=== PATIENT | female | born 1970 | race Asian ===

== ENCOUNTER 2016-04-30 10:12 | Outpatient (CLI) | payer OTHER ==
[~2016-04-30 10:12] MED LIST: AMLO2.5T PO; CLONIDINE0.1 MG PO; HYDR25TA60 PO; LISI20TA11 PO; METF500T PO; SIMV20TA2 PO; WARFARIN5 MG PO
[2016-04-30 10:25] LABS: PLATELET COUNT 304 K/uL (152-353)
[2016-04-30 10:39] LABS: POTASSIUM 4.8 mmol/L (3.6-5.2)
[2016-07-17] MEDS ORDERED: GLIP10TA55 PO (16:18)
[2016-07-17] MEDS ORDERED: LISI20TA11 PO (16:19)
[2016-07-17] MEDS ORDERED: TRAM50TA PO (16:20)
[2016-07-17] MEDS ORDERED: OMEP20CA PO (16:20)
== END 2016-04-30 19:13 | disposition home or self-care (01) ==
LOC: LAB 10:12
PROVIDERS: Internal Medicine
DX: D64.89 Other specified anemias (principal); E11.9 Type 2 diabetes mellitus without complications; I10 Essential (primary) hypertension; Z79.899 Other long term (current) drug therapy; Z51.81 Encounter for therapeutic drug level monitoring
CPT/HCPCS: 80053; 80061; 82607; 82746; 83036; 85027

== ENCOUNTER 2016-05-08 20:04 | Emergency (ER) | payer OTHER ==
[~2016-05-08] VITALS: Ht 160 cm; Wt 97.1 kg
[2016-05-08 22:00] VITALS: BP 189/95; TEMP 98.3
[2016-07-17] MEDS ORDERED: GLIP10TA55 PO (16:18)
[2016-07-17] MEDS ORDERED: LISI20TA11 PO (16:19)
[2016-07-17] MEDS ORDERED: TRAM50TA PO (16:20)
[2016-07-17] MEDS ORDERED: OMEP20CA PO (16:20)
== END 2016-05-08 22:00 | disposition home or self-care (01) ==
LOC: ED 20:04
DX: S00.83XA Contusion of other part of head, initial encounter (principal); W22.8XXA Striking against or struck by other objects, initial encounter; Y92.098 Other place in other non-institutional residence as the place of occurrence of the external cause
CPT/HCPCS: 99283

== ENCOUNTER 2016-06-12 10:10 | Outpatient (CLI) | payer OTHER ==
[2016-07-17] MEDS ORDERED: GLIP10TA55 PO (16:18)
[2016-07-17] MEDS ORDERED: LISI20TA11 PO (16:19)
[2016-07-17] MEDS ORDERED: OMEP20CA PO (16:20)
[2016-07-17] MEDS ORDERED: TRAM50TA PO (16:20)
== END 2016-06-12 18:59 | disposition home or self-care (01) ==
LOC: MAMMO 10:10
DX: Z12.31 Encounter for screening mammogram for malignant neoplasm of breast (principal)
CPT/HCPCS: G0202-TC

== ENCOUNTER 2016-06-30 12:39 | Emergency (ER) | payer OTHER ==
[~2016-06-30] VITALS: Ht 160 cm; Wt 93.4 kg
[2016-06-30 13:42] LABS: PLATELET COUNT 309 K/uL (152-353)
[2016-06-30 13:53] LABS: POTASSIUM 4.3 mmol/L (3.6-5.2)
[2016-06-30 14:48] VITALS: BP 148/82; TEMP 98.4
[2016-07-17] MEDS ORDERED: GLIP10TA55 PO (16:18)
[2016-07-17] MEDS ORDERED: LISI20TA11 PO (16:19)
[2016-07-17] MEDS ORDERED: TRAM50TA PO (16:20)
[2016-07-17] MEDS ORDERED: OMEP20CA PO (16:20)
== END 2016-06-30 14:48 | disposition home or self-care (01) ==
LOC: ED 12:39
PROVIDERS: Family Medicine
DX: K21.9 Gastro-esophageal reflux disease without esophagitis (principal); R10.11 Right upper quadrant pain; S39.011A Strain of muscle, fascia and tendon of abdomen, initial encounter
CPT/HCPCS: 80053; 85027; 96372; 99283; J1885

== ENCOUNTER 2016-08-27 08:02 | Outpatient (CLI) | payer OTHER ==
[~2016-08-27] VITALS: Ht 160 cm; Wt 94.8 kg
[~2016-08-27 08:02] MED LIST changes: +GLIP10TA55 PO; +OMEP20CA PO; +TRAM50TA PO
== END 2016-08-27 11:30 | disposition home or self-care (01) ==
LOC: NM 08:02
DX: R07.89 Other chest pain (principal)
CPT/HCPCS: A9500; J2785

== ENCOUNTER 2016-09-23 11:42 | Outpatient (CLI) | payer OTHER ==
[2016-09-23 12:38] LABS: POTASSIUM 4.9 mmol/L (3.6-5.2)
[2016-09-23 12:40] LABS: PLATELET COUNT 255 K/uL (152-353)
== END 2016-09-23 19:49 | disposition home or self-care (01) ==
LOC: LABW 11:42
PROVIDERS: Specialist
DX: Z01.810 Encounter for preprocedural cardiovascular examination (principal)
CPT/HCPCS: 36415; 80053; 85027

== ENCOUNTER 2016-09-25 12:29 | Observation (INO) | payer OTHER ==
[~2016-09-25] VITALS: Ht 160 cm; Wt 103.6 kg
--- NOTE | 2016-09-25 12:55 | NUR ---
ORIENTED PT TO ROOM AND CONTROLS. [facility] PROVIDED AND TAPE PLACED CENTRAL SUPPLY CLERK LIGHT FOR PT TO FEEL TO CALL FOR NURSE. PT VERBALIZED UNDERSTANDING. 1450- PT TO XRAY AT THIS TIME
[2016-09-25] MEDS ORDERED: JANTOVEN7.5 MG PO (14:48)
[2016-09-25] MEDS ORDERED: DULOXETINE HCL30 MG PO (14:49)
[2016-09-25] MEDS ORDERED: LIPITOR20 MG PO (14:50)
[2016-09-25] MEDS ORDERED: ALAVERT10 M2 PO (14:50)
[2016-09-25] MEDS ORDERED: GLIM2TAB PO (14:50)
[2016-09-25] MEDS ORDERED: GABA300C2 PO (14:51)
[2016-09-25 15:10] VITALS: BP 189/85; TEMP 98.1; Ht 160 cm; Wt 103.6 kg
[2016-09-25 15:11] LABS: PLATELET COUNT 247 K/uL (152-353)
[2016-09-25 15:27] LABS: POTASSIUM 4.9 mmol/L (3.6-5.2)
[2016-09-25 15:31] LABS: PARTIAL THROMBOPLASTIN TIME 28.9 SECONDS (24.5-33.6)
[2016-09-25 16:00] VITALS: BP 189/85; TEMP 98.1
--- NOTE | 2016-09-25 16:00 | NUR ---
BLOOD ADMINISTRATION SHEETS READ AND EXOKAINED TO PT. PT VERBALIZED UNDERSTANDING AND SIGNED BLOOD CONSENT.
[2016-09-25 20:00] VITALS: BP 161/84; TEMP 98.3
[2016-09-26] VITALS: BP 155/89; TEMP 98
[2016-09-26 04:00] VITALS: BP 154/81; TEMP 98.5
[2016-09-26 07:45] VITALS: BP 175/81; TEMP 97.5
[2016-09-26 08:35] LABS: PLATELET COUNT 231 K/uL (152-353)
[2016-09-26 08:37] LABS: POTASSIUM 4.9 mmol/L (3.6-5.2)
--- NOTE | 2016-09-26 10:00 | NUR ---
BP RECHECKED 167/79.
--- NOTE | 2016-09-26 10:15 | NUR ---
CALLED DR MICHELLE OFFICE TO GIVE UPDATE ON HGB. FAXED LABS TO DR MICHELLE OFFICE. INSTRUCTIONS GIVEN TO NURSE TO GIVE TO PT FOR HEART CATH. HEART CATH SCHEDULED FOR 10/03/16 AT 0700. INSTRUCTIONS FOR PT TO RESTART COUMADIN TODAY AND STOP TAKING COUMADIN ON 09/30/16- FRIDAY BEFORE CATH. WILL INSTRUCT PT. DR SANTOYO NOTIFIED AND ORDERED TO FOLLOW SAME ORDERS.
--- NOTE | 2016-09-26 10:51 | NUR ---
INSTRUCTED PT TO BE AT [facility] AT 0700 ON 10/03/16 FOR HEART CATH. INSTRUCTED PT TO TAKE COUMADIN DIRECTED UNTIL Friday09/30/16-FRIDAY BEFORE HEART CATH. INSTRUCTED PT OF NPO STATUS AFTER MIDNIGHT ON 10/02/16. INSTRUCTED PT TO NOT TAKE ANY MEDDS THE MORNING OF HEART CATH. PT INSTRUCTED TO CALL DR MICHELLE OFFICE WITH ANY QUESTIONS OR CONCERN RELATED TO MEDICATIONS OR HEART CATH. PT TO FOLLOW UP WITH DR SANTOYO ON 10/04/16 AT 0930. PT VERBALIZED UNDERSTANDING OF ALL INSTRUCTIONS. FAMILY AT VERBALIZED UNDERSTANDING OF ALL INSTRUCTIONS. FAMILY NOITIFED HOME HEALTH OF MEDICATIONS AND FOLLOW UP APPTS. IV DC'D WITH CANNULA INTACT AND SITE CARE PROVIDED. NAD NOTED. PT LEFT VIA WC AT THIS TIME WITH TECH AND FAMILY.
== END 2016-09-26 11:03 | disposition home or self-care (01) ==
LOC: MED/SURG 12:29
PROVIDERS: ADMIT Family Medicine
PROC: 30233N1 Transfusion of Nonautologous Red Blood Cells into Peripheral Vein, Percutaneous Approach (ICD-10-PCS; principal; 2016-09-25)
DX: D64.89 Other specified anemias (principal); R07.89 Other chest pain; I20.0 Unstable angina; R73.9 Hyperglycemia, unspecified
CPT/HCPCS: 36415; 36430; 80053; 82550; 82948; 83880; 84484; 85027; 85610; 85730; 86850; 86900; 86901; 86922; 93005; 96365; 96366; 99220; G0378; G0379; J1940; P9016

== ENCOUNTER 2016-10-21 14:46 | Outpatient (CLI) | payer OTHER ==
[~2016-10-21 14:46] MED LIST changes: +ALAVERT10 M2 PO; +DULOXETINE HCL30 MG PO; +GABA300C2 PO; +GLIM2TAB PO; +JANTOVEN7.5 MG PO; +LIPITOR20 MG PO
[2016-10-21 15:11] LABS: PLATELET COUNT 242 K/uL (152-353)
[2016-10-21 15:20] LABS: POTASSIUM 5.1 mmol/L (3.6-5.2)
== END 2016-10-21 15:50 | disposition home or self-care (01) ==
LOC: LABW 14:46
PROVIDERS: Nurse Practitioner Adult Health
DX: Z01.810 Encounter for preprocedural cardiovascular examination (principal)
CPT/HCPCS: 36415; 80048; 85027

== ENCOUNTER 2016-11-01 13:56 | Outpatient (CLI) | payer OTHER ==
[2016-11-01 14:18] LABS: POTASSIUM 4.5 mmol/L (3.6-5.2)
== END 2016-11-01 19:10 | disposition home or self-care (01) ==
LOC: LABW 13:56
PROVIDERS: Nurse Practitioner Adult Health
DX: Z79.899 Other long term (current) drug therapy (principal); E11.9 Type 2 diabetes mellitus without complications; Z51.81 Encounter for therapeutic drug level monitoring
CPT/HCPCS: 36415; 80048

== ENCOUNTER 2016-11-04 04:56 | Emergency (ER) | payer OTHER ==
[~2016-11-04] VITALS: Ht 160 cm; Wt 102.5 kg
[2016-11-04 06:28] LABS: PLATELET COUNT 273 K/uL (152-353)
[2016-11-04 06:37] LABS: POTASSIUM 4.1 mmol/L (3.6-5.2)
[2016-11-04 10:37] VITALS: BP 129/76; TEMP 98.9
== END 2016-11-04 10:45 | disposition home or self-care (01) ==
LOC: ED 04:56
PROVIDERS: Specialist
DX: M79.1 Myalgia (principal); R58 Hemorrhage, not elsewhere classified
CPT/HCPCS: 36415; 80053; 85027; 99283

== ENCOUNTER 2016-11-13 15:36 | Outpatient (CLI) | payer OTHER | END 2016-11-13 16:40 | disposition home or self-care (01) | LOC: US 15:36 | DX: M79.605 Pain in left leg (principal) ==

== ENCOUNTER 2016-11-29 15:35 | Observation (INO) | payer OTHER ==
[~2016-11-29] VITALS: Ht 160 cm; Wt 86.0 kg
[2016-11-29 15:57] VITALS: BP 167/80; TEMP 98.4
[2016-11-29 19:24] LABS: PLATELET COUNT 320 K/uL (152-353)
[2016-11-29 19:30] LABS: SODIUM 136 mmol/L (136-145)
[2016-11-29 23:02] LABS: PARTIAL THROMBOPLASTIN TIME 25.3 SECONDS (24.5-33.6)
[2016-11-30] VITALS: BP 197/95; TEMP 97.7
[2016-11-30 00:02] VITALS: BP 197/95; TEMP 97.7
[2016-11-30 01:29] VITALS: BP 196/102; TEMP 97.7; Ht 160 cm; Wt 86.0 kg
[2016-11-30 03:47] LABS: PLATELET COUNT 298 K/uL (152-353)
[2016-11-30 04:00] VITALS: BP 150/100; TEMP 97.8
[2016-11-30 04:21] LABS: POTASSIUM 4.8 mmol/L (3.6-5.2)
[2016-11-30 08:32] VITALS: BP 112/67; TEMP 98.5
[2016-11-30 12:00] VITALS: BP 168/89; TEMP 98.7
--- NOTE | 2016-11-30 12:15 | NUR ---
1145 MESSAGE LEFT WITH [facility]BDI FOR DR SANTOYO TO RETURN CALL REGUARDING ABN EKG. 1150 DR SANTOYO RETURNED CALL. NO NEW ORDERS REC'D AT THIS TIME. PT DENIES ANY CHEST PAIN OR SHORTNESS OF BREATH. WILL CON'T TO MONITOR THE PT
--- NOTE | 2016-11-30 14:32 | NUR ---
IV SITE DC'ED WITH CATHETER TIP INTACT. TELEMETRY REMOVED. DISCHARGE INSTRUCTION GIVEN TO PT AND PT VOICED UNDERSTANDING. PT TO CALL FOR A RIDE HOME.
== END 2016-11-30 15:25 | disposition home or self-care (01) ==
LOC: ED 15:35 → MED/SURG 20:30
PROVIDERS: ADMIT Family Medicine
DX: R07.89 Other chest pain (principal); I10 Essential (primary) hypertension; Z86.73 Personal history of transient ischemic attack (TIA), and cerebral infarction without residual deficits
CPT/HCPCS: 36415; 80053; 82550; 82553; 83735; 84484; 85027; 85610; 85730; 93005; 94760; 96372; 99220; 99283; G0378; J1650

== ENCOUNTER 2017-01-20 11:23 | Outpatient (CLI) | payer OTHER ==
[2017-01-20 11:57] LABS: PLATELET COUNT 256 K/uL (152-353)
[2017-01-20 13:10] LABS: POTASSIUM 4.2 mmol/L (3.6-5.2)
== END 2017-01-20 12:25 | disposition home or self-care (01) ==
LOC: LAB 11:23
PROVIDERS: Internal Medicine
DX: E11.9 Type 2 diabetes mellitus without complications (principal); I10 Essential (primary) hypertension
CPT/HCPCS: 80053; 85027

== ENCOUNTER 2017-03-19 10:36 | Outpatient (CLI) | payer OTHER ==
[2017-03-19 10:59] LABS: PLATELET COUNT 219 K/uL (152-353)
[2017-03-19 11:21] LABS: POTASSIUM 4.3 mmol/L (3.6-5.2)
== END 2017-03-19 19:35 | disposition home or self-care (01) ==
LOC: LAB 10:36
PROVIDERS: Nurse Practitioner Family
DX: E11.9 Type 2 diabetes mellitus without complications (principal); I10 Essential (primary) hypertension
CPT/HCPCS: 80053; 85027

== ENCOUNTER 2017-04-17 10:16 | Outpatient (CLI) | payer OTHER ==
[2017-04-17 11:03] LABS: POTASSIUM 4.5 mmol/L (3.6-5.2)
[2017-04-17 11:10] LABS: PLATELET COUNT 228 K/uL (152-353)
== END 2017-04-17 22:32 | disposition home or self-care (01) ==
LOC: LAB 10:16
PROVIDERS: Nurse Practitioner Family
DX: E11.9 Type 2 diabetes mellitus without complications (principal); I10 Essential (primary) hypertension
CPT/HCPCS: 80053; 85027

== ENCOUNTER 2017-05-07 16:04 | Outpatient (CLI) | payer OTHER ==
[2017-05-07 16:38] LABS: PLATELET COUNT 236 K/uL (152-353)
[2017-05-07 16:41] LABS: POTASSIUM 4.6 mmol/L (3.6-5.2)
== END 2017-05-07 19:59 | disposition home or self-care (01) ==
LOC: LAB 16:04
PROVIDERS: Internal Medicine Nephrology
DX: I12.9 Hypertensive chronic kidney disease with stage 1 through stage 4 chronic kidney disease, or unspecified chronic kidney disease (principal); E11.9 Type 2 diabetes mellitus without complications; N18.3 Chronic kidney disease, stage 3 (moderate)
CPT/HCPCS: 80053; 80061; 82570; 84100; 84155; 85027

== ENCOUNTER 2017-06-09 13:51 | Outpatient (CLI) | payer OTHER ==
[2017-06-09 14:03] LABS: PLATELET COUNT 214 K/uL (152-353)
[2017-06-09 14:18] LABS: POTASSIUM 4.4 mmol/L (3.6-5.2)
== END 2017-06-09 19:39 | disposition home or self-care (01) ==
LOC: LAB 13:51
PROVIDERS: Internal Medicine
DX: I10 Essential (primary) hypertension (principal); Z79.01 Long term (current) use of anticoagulants; Z51.81 Encounter for therapeutic drug level monitoring
CPT/HCPCS: 80053; 85027

== ENCOUNTER 2017-07-07 10:42 | Outpatient (CLI) | payer OTHER ==
[2017-07-07 10:56] LABS: PLATELET COUNT 241 K/uL (152-353)
[2017-07-07 11:21] LABS: POTASSIUM 4.1 mmol/L (3.6-5.2)
== END 2017-07-07 19:24 | disposition home or self-care (01) ==
LOC: LAB 10:42
PROVIDERS: Internal Medicine
DX: E11.65 Type 2 diabetes mellitus with hyperglycemia (principal); I10 Essential (primary) hypertension
CPT/HCPCS: 80053; 85027

== ENCOUNTER 2017-08-04 10:15 | Outpatient (CLI) | payer OTHER ==
[2017-08-04 10:36] LABS: PLATELET COUNT 223 K/uL (152-353)
== END 2017-08-04 20:03 | disposition home or self-care (01) ==
LOC: LAB 10:15
PROVIDERS: Internal Medicine
DX: E11.65 Type 2 diabetes mellitus with hyperglycemia (principal); I10 Essential (primary) hypertension
CPT/HCPCS: 80053; 85027

== ENCOUNTER 2017-09-01 12:19 | Outpatient (CLI) | payer OTHER ==
[2017-09-01 13:11] LABS: PLATELET COUNT 197 K/uL (152-353)
[2017-09-01 13:20] LABS: POTASSIUM 4.4 mmol/L (3.6-5.2)
== END 2017-09-01 21:24 | disposition home or self-care (01) ==
LOC: LAB 12:19
PROVIDERS: Internal Medicine
DX: E11.65 Type 2 diabetes mellitus with hyperglycemia (principal); I10 Essential (primary) hypertension
CPT/HCPCS: 80053; 85027

== ENCOUNTER 2017-09-23 12:48 | Outpatient (CLI) | payer OTHER ==
[2017-09-23 12:59] LABS: PLATELET COUNT 200 K/uL (152-353)
[2017-09-23 13:33] LABS: POTASSIUM 4.4 mmol/L (3.6-5.2)
== END 2017-09-23 22:25 | disposition home or self-care (01) ==
LOC: LAB 12:48
PROVIDERS: Internal Medicine Nephrology
DX: E11.9 Type 2 diabetes mellitus without complications (principal); I10 Essential (primary) hypertension; N28.89 Other specified disorders of kidney and ureter
CPT/HCPCS: 80053; 82306; 82570; 83970; 84100; 84155; 85027

== ENCOUNTER 2017-10-20 02:29 | Emergency (ER) | payer OTHER ==
[~2017-10-20] VITALS: Ht 160 cm; Wt 97.5 kg
[2017-10-20 03:50] VITALS: BP 144/77; TEMP 98.5
== END 2017-10-20 03:50 | disposition home or self-care (01) ==
LOC: ED 02:29
DX: M25.571 Pain in right ankle and joints of right foot (principal)
CPT/HCPCS: 96372; 99283; J1885

== ENCOUNTER 2017-11-03 10:23 | Outpatient (CLI) | payer OTHER ==
[2017-11-03 11:06] LABS: PLATELET COUNT 177 K/uL (152-353)
[2017-11-03 11:36] LABS: POTASSIUM 4.3 mmol/L (3.6-5.2)
== END 2017-11-03 23:03 | disposition home or self-care (01) ==
LOC: LAB 10:23
PROVIDERS: Internal Medicine
DX: I10 Essential (primary) hypertension (principal); E86.0 Dehydration
CPT/HCPCS: 80053; 85027

== ENCOUNTER 2017-11-24 13:03 | Outpatient (CLI) | payer OTHER ==
[2017-11-24 14:01] LABS: PLATELET COUNT 193 K/uL (152-353)
[2017-11-24 14:05] LABS: POTASSIUM 4.4 mmol/L (3.6-5.2)
== END 2017-11-24 20:14 | disposition home or self-care (01) ==
LOC: LAB 13:03
PROVIDERS: Internal Medicine
DX: E11.65 Type 2 diabetes mellitus with hyperglycemia (principal); I10 Essential (primary) hypertension; H54.8 Legal blindness, as defined in USA; Z86.73 Personal history of transient ischemic attack (TIA), and cerebral infarction without residual deficits; Z79.01 Long term (current) use of anticoagulants
CPT/HCPCS: 36415; 80053; 85027

== ENCOUNTER 2017-12-23 12:55 | Outpatient (CLI) | payer OTHER ==
[2017-12-23 13:09] LABS: PLATELET COUNT 202 K/uL (152-353)
[2017-12-23 13:28] LABS: POTASSIUM 4.5 mmol/L (3.6-5.2)
== END 2017-12-23 23:33 | disposition home or self-care (01) ==
LOC: LAB 12:55
PROVIDERS: Internal Medicine
DX: I10 Essential (primary) hypertension (principal); E11.65 Type 2 diabetes mellitus with hyperglycemia
CPT/HCPCS: 80053; 85027

== ENCOUNTER 2018-01-24 06:56 | Outpatient (CLI) | payer OTHER | END 2018-01-24 06:59 | disposition short-term general hospital (02) | LOC: AMB 06:56 | DX: R20.2 Paresthesia of skin (principal) | CPT/HCPCS: A0425; A0427 ==

== ENCOUNTER 2018-01-24 07:02 | Emergency (ER) | payer OTHER ==
[~2018-01-24] VITALS: Ht 160 cm; Wt 97.5 kg
[2018-01-24 07:11] VITALS: TEMP 97.2
[2018-01-24 07:59] LABS: PLATELET COUNT 219 K/uL (152-353)
[2018-01-24 08:08] LABS: PARTIAL THROMBOPLASTIN TIME 25.6 SECONDS (24.5-33.6)
[2018-01-24 09:12] VITALS: BP 195/85
== END 2018-01-24 09:12 | disposition home or self-care (01) ==
LOC: ED 07:02
PROVIDERS: Emergency Medicine
DX: M26.69 Other specified disorders of temporomandibular joint (principal); Z86.73 Personal history of transient ischemic attack (TIA), and cerebral infarction without residual deficits; R00.1 Bradycardia, unspecified
CPT/HCPCS: 80053; 82550; 84484; 85027; 85610; 85730; 93005; 99284

== ENCOUNTER 2018-01-26 13:10 | Outpatient (CLI) | payer OTHER ==
[2018-01-26 13:43] LABS: PLATELET COUNT 212 K/uL (152-353)
[2018-01-26 14:06] LABS: POTASSIUM 4.3 mmol/L (3.6-5.2)
== END 2018-01-26 19:57 | disposition home or self-care (01) ==
LOC: LAB 13:10
PROVIDERS: Internal Medicine
DX: E11.65 Type 2 diabetes mellitus with hyperglycemia (principal); I10 Essential (primary) hypertension; Z86.73 Personal history of transient ischemic attack (TIA), and cerebral infarction without residual deficits
CPT/HCPCS: 80053; 85027

== ENCOUNTER 2018-03-02 10:35 | Outpatient (CLI) | payer OTHER ==
[2018-03-02 11:19] LABS: PLATELET COUNT 164 K/uL (152-353)
[2018-03-02 11:29] LABS: POTASSIUM 4.9 mmol/L (3.6-5.2)
== END 2018-03-02 22:53 | disposition home or self-care (01) ==
LOC: LAB 10:35
PROVIDERS: Internal Medicine Nephrology
DX: E11.65 Type 2 diabetes mellitus with hyperglycemia (principal); I10 Essential (primary) hypertension; E78.00 Pure hypercholesterolemia, unspecified; N28.9 Disorder of kidney and ureter, unspecified
CPT/HCPCS: 80053; 80061; 82570; 84100; 84155; 85027

== ENCOUNTER 2018-04-06 10:30 | Outpatient (CLI) | payer OTHER ==
[2018-04-06 10:51] LABS: PLATELET COUNT 212 K/uL (152-353)
[2018-04-06 11:13] LABS: POTASSIUM 4.6 mmol/L (3.6-5.2)
== END 2018-04-06 19:09 | disposition home or self-care (01) ==
LOC: LAB 10:30
PROVIDERS: Internal Medicine
DX: E11.65 Type 2 diabetes mellitus with hyperglycemia (principal); I10 Essential (primary) hypertension; H54.8 Legal blindness, as defined in USA; Z86.73 Personal history of transient ischemic attack (TIA), and cerebral infarction without residual deficits; Z79.01 Long term (current) use of anticoagulants
CPT/HCPCS: 80053; 85027

== ENCOUNTER 2018-05-18 14:50 | Outpatient (CLI) | payer OTHER ==
[2018-05-18 15:35] LABS: PLATELET COUNT 186 K/uL (152-353)
[2018-05-18 15:45] LABS: POTASSIUM 4.7 mmol/L (3.6-5.2)
== END 2018-05-18 19:21 | disposition home or self-care (01) ==
LOC: LAB 14:50
PROVIDERS: Internal Medicine
DX: E11.65 Type 2 diabetes mellitus with hyperglycemia (principal); I10 Essential (primary) hypertension; Z79.01 Long term (current) use of anticoagulants
CPT/HCPCS: 80053; 85027

== ENCOUNTER 2018-05-22 01:54 | Emergency (ER) | payer OTHER ==
[~2018-05-22] VITALS: Ht 160 cm; Wt 97.5 kg
[2018-05-22 03:00] LABS: PLATELET COUNT 235 K/uL (152-353)
[2018-05-22 03:48] VITALS: BP 133/52; TEMP 98.1
== END 2018-05-22 03:59 | disposition home or self-care (01) ==
LOC: ED 01:54
PROVIDERS: Internal Medicine
DX: R11.2 Nausea with vomiting, unspecified (principal); R10.84 Generalized abdominal pain; K52.89 Other specified noninfective gastroenteritis and colitis
CPT/HCPCS: 36415; 81000; 85027; 87502; 93005; 96374; 96375; 99284; J0360; J2405; J3490

== ENCOUNTER 2018-06-15 10:22 | Outpatient (CLI) | payer OTHER ==
[2018-06-15 11:30] LABS: PLATELET COUNT 192 K/uL (152-353)
[2018-06-15 11:39] LABS: POTASSIUM 4.5 mmol/L (3.6-5.2)
== END 2018-06-15 20:00 | disposition home or self-care (01) ==
LOC: LAB 10:22
PROVIDERS: Internal Medicine
DX: E11.65 Type 2 diabetes mellitus with hyperglycemia (principal); I10 Essential (primary) hypertension; Z79.01 Long term (current) use of anticoagulants
CPT/HCPCS: 80053; 85027

== ENCOUNTER 2018-07-12 13:56 | Emergency (ER) | payer OTHER ==
[~2018-07-12] VITALS: Ht 160 cm; Wt 97.5 kg
[2018-07-12 13:57] VITALS: TEMP 98.4
[2018-07-12 15:41] LABS: PLATELET COUNT 192 K/uL (152-353)
[2018-07-12 15:47] LABS: POTASSIUM 4.4 mmol/L (3.6-5.2)
[2018-07-12 18:24] VITALS: BP 170/89
== END 2018-07-12 18:24 | disposition home or self-care (01) ==
LOC: ED 13:56
PROVIDERS: Family Medicine
DX: M54.5 Low back pain (principal); E11.65 Type 2 diabetes mellitus with hyperglycemia; I10 Essential (primary) hypertension
CPT/HCPCS: 80053; 81000; 81025; 82962; 85027; 99283; J1815; J1885

== ENCOUNTER 2018-07-16 10:18 | Outpatient (CLI) | payer OTHER ==
[2018-07-16 10:29] LABS: POTASSIUM 5.7 mmol/L (3.6-5.2)
[2018-07-16 10:36] LABS: PLATELET COUNT 204 K/uL (152-353)
== END 2018-07-16 20:37 | disposition home or self-care (01) ==
LOC: LAB 10:18
PROVIDERS: Internal Medicine
DX: E11.65 Type 2 diabetes mellitus with hyperglycemia (principal); I10 Essential (primary) hypertension; Z79.01 Long term (current) use of anticoagulants
CPT/HCPCS: 80053; 85027

== ENCOUNTER 2018-08-17 10:15 | Outpatient (CLI) | payer OTHER ==
[2018-08-17 10:31] LABS: PLATELET COUNT 204 K/uL (152-353)
[2018-08-17 10:56] LABS: POTASSIUM 4.5 mmol/L (3.6-5.2)
== END 2018-08-17 19:25 | disposition home or self-care (01) ==
LOC: LAB 10:15
PROVIDERS: Internal Medicine
DX: E11.65 Type 2 diabetes mellitus with hyperglycemia (principal); I10 Essential (primary) hypertension; Z79.01 Long term (current) use of anticoagulants
CPT/HCPCS: 80053; 85027

== ENCOUNTER 2018-09-08 09:34 | Outpatient (CLI) | payer OTHER | END 2018-09-08 19:19 | disposition home or self-care (01) | LOC: MAMMO 09:34 | DX: N64.59 Other signs and symptoms in breast (principal); Z12.31 Encounter for screening mammogram for malignant neoplasm of breast ==

== ENCOUNTER 2018-09-15 11:41 | Outpatient (CLI) | payer OTHER ==
[2018-09-15 12:25] LABS: PLATELET COUNT 188 K/uL (152-353)
[2018-09-15 12:57] LABS: POTASSIUM 4.4 mmol/L (3.6-5.2)
== END 2018-09-15 20:31 | disposition home or self-care (01) ==
LOC: LAB 11:41
PROVIDERS: Internal Medicine
DX: E11.65 Type 2 diabetes mellitus with hyperglycemia (principal); I10 Essential (primary) hypertension; H54.8 Legal blindness, as defined in USA; Z86.73 Personal history of transient ischemic attack (TIA), and cerebral infarction without residual deficits; Z79.01 Long term (current) use of anticoagulants
CPT/HCPCS: 80053; 85027

== ENCOUNTER 2018-09-30 09:49 | Day surgery (SDC) | payer OTHER ==
[2018-09-30 13:13] LABS: PLATELET COUNT 222 K/uL (152-353)
[2018-09-30 13:16] LABS: POTASSIUM 4.5 mmol/L (3.6-5.2)
[2018-09-30 13:23] LABS: PARTIAL THROMBOPLASTIN TIME 24.6 SECONDS (24.5-33.6)
== END 2018-09-30 15:30 | disposition home or self-care (01) ==
LOC: OR 09:49
PROVIDERS: Internal Medicine Gastroenterology
PROC: 0DB68ZZ Excision of Stomach, Via Natural or Artificial Opening Endoscopic (ICD-10-PCS; principal; 2018-09-30)
PROC: 0DB88ZZ Excision of Small Intestine, Via Natural or Artificial Opening Endoscopic (ICD-10-PCS; 2018-09-30)
PROC: 0D738ZZ Dilation of Lower Esophagus, Via Natural or Artificial Opening Endoscopic (ICD-10-PCS; 2018-09-30)
DX: K63.89 Other specified diseases of intestine (principal); K31.84 Gastroparesis; K21.0 Gastro-esophageal reflux disease with esophagitis; K22.2 Esophageal obstruction; K29.50 Unspecified chronic gastritis without bleeding; R10.13 Epigastric pain; R13.10 Dysphagia, unspecified; D50.9 Iron deficiency anemia, unspecified
CPT/HCPCS: 80053; 85027; 85610; 85730; J2001; J2250; J2704

== ENCOUNTER 2018-10-05 11:18 | Outpatient (CLI) | payer OTHER ==
[2018-10-05 11:55] LABS: PLATELET COUNT 219 K/uL (152-353)
[2018-10-05 12:46] LABS: POTASSIUM 4.6 mmol/L (3.6-5.2)
== END 2018-10-05 19:38 | disposition home or self-care (01) ==
LOC: LAB 11:18
PROVIDERS: Internal Medicine Nephrology
DX: I12.9 Hypertensive chronic kidney disease with stage 1 through stage 4 chronic kidney disease, or unspecified chronic kidney disease (principal); N18.3 Chronic kidney disease, stage 3 (moderate); D64.89 Other specified anemias; E11.22 Type 2 diabetes mellitus with diabetic chronic kidney disease; E78.00 Pure hypercholesterolemia, unspecified; N28.89 Other specified disorders of kidney and ureter
CPT/HCPCS: 80053; 82728; 83036; 83540; 83550; 83970; 84100; 84155; 85027

== ENCOUNTER 2018-10-18 13:33 | Outpatient (CLI) | payer OTHER | END 2018-10-18 13:36 | disposition short-term general hospital (02) | LOC: AMB 13:33 | DX: J00 Acute nasopharyngitis [common cold] (principal) | CPT/HCPCS: A0425; A0427 ==

== ENCOUNTER 2018-10-18 13:47 | Emergency (ER) | payer OTHER ==
[~2018-10-18] VITALS: Ht 160 cm; Wt 106.1 kg
[2018-10-18 14:51] LABS: PLATELET COUNT 190 K/uL (152-353)
[2018-10-18 15:05] LABS: POTASSIUM 4.9 mmol/L (3.6-5.2)
[2018-10-18 20:20] VITALS: BP 136/91; TEMP 97.9
== END 2018-10-18 21:46 | disposition home or self-care (01) ==
LOC: ED 13:47
PROVIDERS: Family Medicine
DX: R52 Pain, unspecified (principal); E11.65 Type 2 diabetes mellitus with hyperglycemia
CPT/HCPCS: 80053; 81000; 82962; 84484; 85027; 87502; 96372; 99284; J1815

== ENCOUNTER 2018-11-02 10:50 | Outpatient (CLI) | payer OTHER ==
[2018-11-02] MEDS ORDERED: COZAAR25 MG PO (13:22)
[2018-11-02] MEDS ORDERED: ASPIRIN LOW DOS81 MG PO (13:23)
[2018-11-02] MEDS ORDERED: FERROUS SULF325 MG PO (13:24)
[2018-11-02] MEDS ORDERED: PANTOPRAZOLE 40MG TA PO (13:25)
[2018-11-02] MEDS ORDERED: ROCALTROL0.25 MCG PO (13:47)
[2018-11-02] MEDS ORDERED: DULO60CA2 PO (13:48)
[2018-11-02] MEDS ORDERED: CLOP75TA2 PO (13:49)
[2018-11-02] MEDS ORDERED: FURO20TA67 PO (13:50)
[2018-11-02] MEDS ORDERED: HYDRALAZINE50 MG PO (13:51)
[2018-11-02] MEDS ORDERED: METO-837 PO (13:51)
[2018-11-02] MEDS ORDERED: GRALISE600 MG PO (13:52)
== END 2018-11-02 10:52 | disposition short-term general hospital (02) ==
LOC: AMB 10:50
DX: R73.9 Hyperglycemia, unspecified (principal)
CPT/HCPCS: A0425; A0429

== ENCOUNTER 2018-11-02 10:58 | Emergency (ER) | payer OTHER ==
[~2018-11-02] VITALS: Ht 160 cm; Wt 107.0 kg
[2018-11-02 12:27] LABS: POTASSIUM 4.3 mmol/L (3.6-5.2); SODIUM 128 mmol/L (136-145)
[2018-11-02 12:32] LABS: PLATELET COUNT 182 K/uL (152-353)
[2018-11-02] MEDS ORDERED: COZAAR25 MG PO (13:22)
[2018-11-02] MEDS ORDERED: ASPIRIN LOW DOS81 MG PO (13:23)
[2018-11-02] MEDS ORDERED: FERROUS SULF325 MG PO (13:24)
[2018-11-02] MEDS ORDERED: PANTOPRAZOLE 40MG TA PO (13:25)
[2018-11-02] MEDS ORDERED: ROCALTROL0.25 MCG PO (13:47)
[2018-11-02] MEDS ORDERED: DULO60CA2 PO (13:48)
[2018-11-02] MEDS ORDERED: CLOP75TA2 PO (13:49)
[2018-11-02] MEDS ORDERED: FURO20TA67 PO (13:50)
[2018-11-02] MEDS ORDERED: HYDRALAZINE50 MG PO (13:51)
[2018-11-02] MEDS ORDERED: METO-837 PO (13:51)
[2018-11-02] MEDS ORDERED: GRALISE600 MG PO (13:52)
[2018-11-02 14:40] VITALS: BP 159/68; TEMP 97.9
== END 2018-11-02 14:40 | disposition home or self-care (01) ==
LOC: ED 10:58
PROVIDERS: Student in an Organized Health Care Education/Training Program
DX: E10.65 Type 1 diabetes mellitus with hyperglycemia (principal); Z79.4 Long term (current) use of insulin
CPT/HCPCS: 36415; 80048; 81000; 81025; 82962; 83735; 84484; 85027; 93005; 96360; 96361; 96372; 99284; J1815

== ENCOUNTER 2018-11-09 12:42 | Outpatient (CLI) | payer OTHER ==
[~2018-11-09 12:42] MED LIST changes: +ASPIRIN LOW DOS81 MG PO; +CLOP75TA2 PO; +COZAAR25 MG PO; +DULO60CA2 PO; +FERROUS SULF325 MG PO; +FURO20TA67 PO; +GRALISE600 MG PO; +HYDRALAZINE50 MG PO; +METO-837 PO; +PANTOPRAZOLE 40MG TA PO; +ROCALTROL0.25 MCG PO
[2018-11-09 13:23] LABS: PLATELET COUNT 203 K/uL (152-353)
[2018-11-09 14:10] LABS: POTASSIUM 4.1 mmol/L (3.6-5.2)
== END 2018-11-09 21:41 | disposition home or self-care (01) ==
LOC: LAB 12:42
PROVIDERS: Internal Medicine
DX: I10 Essential (primary) hypertension (principal); E11.65 Type 2 diabetes mellitus with hyperglycemia; H54.8 Legal blindness, as defined in USA; Z86.73 Personal history of transient ischemic attack (TIA), and cerebral infarction without residual deficits; Z79.01 Long term (current) use of anticoagulants
CPT/HCPCS: 80053; 85027

== ENCOUNTER 2018-11-17 10:44 | Outpatient (CLI) | payer OTHER | END 2018-11-17 23:44 | disposition home or self-care (01) | LOC: LAB 10:44 | DX: I63.89 Other cerebral infarction (principal); N18.4 Chronic kidney disease, stage 4 (severe); E78.49 Other hyperlipidemia; E03.8 Other specified hypothyroidism; Z79.01 Long term (current) use of anticoagulants; E66.01 Morbid (severe) obesity due to excess calories; H57.11 Ocular pain, right eye; E11.69 Type 2 diabetes mellitus with other specified complication; E11.65 Type 2 diabetes mellitus with hyperglycemia | CPT/HCPCS: 83036 ==

== ENCOUNTER 2018-12-01 07:55 | Outpatient (CLI) | payer OTHER ==
[~2018-12-01] VITALS: Ht 160 cm; Wt 104.8 kg
== END 2018-12-01 20:55 | disposition home or self-care (01) ==
LOC: NM 07:55
DX: I25.119 Atherosclerotic heart disease of native coronary artery with unspecified angina pectoris (principal)
CPT/HCPCS: A9500; J2785

== ENCOUNTER 2018-12-08 11:19 | Outpatient (CLI) | payer OTHER ==
[2018-12-08 12:06] LABS: POTASSIUM 4.5 mmol/L (3.6-5.2)
[2018-12-08 12:13] LABS: PLATELET COUNT 190 K/uL (152-353)
== END 2018-12-08 23:59 ==
LOC: LAB 11:19
PROVIDERS: Internal Medicine
DX: E11.65 Type 2 diabetes mellitus with hyperglycemia (principal); I10 Essential (primary) hypertension
CPT/HCPCS: 80053; 83036; 85027

== ENCOUNTER 2019-01-11 10:45 | Outpatient (CLI) | payer OTHER ==
[2019-01-11 11:23] LABS: PLATELET COUNT 202 K/uL (152-353)
[2019-01-11 11:40] LABS: POTASSIUM 4.4 mmol/L (3.6-5.2)
== END 2019-01-11 23:20 | disposition home or self-care (01) ==
LOC: LAB 10:45
PROVIDERS: Internal Medicine
DX: E11.65 Type 2 diabetes mellitus with hyperglycemia (principal)
CPT/HCPCS: 80053; 83036; 85027

== ENCOUNTER 2019-02-09 11:34 | Outpatient (CLI) | payer OTHER ==
[2019-02-09 12:00] LABS: PLATELET COUNT 193 K/uL (152-353)
[2019-02-09 12:17] LABS: POTASSIUM 4.2 mmol/L (3.6-5.2)
== END 2019-02-09 19:02 | disposition home or self-care (01) ==
LOC: LAB 11:34
PROVIDERS: Internal Medicine Nephrology
DX: E11.65 Type 2 diabetes mellitus with hyperglycemia (principal); D64.89 Other specified anemias; E78.00 Pure hypercholesterolemia, unspecified; I12.9 Hypertensive chronic kidney disease with stage 1 through stage 4 chronic kidney disease, or unspecified chronic kidney disease; N18.3 Chronic kidney disease, stage 3 (moderate); N28.9 Disorder of kidney and ureter, unspecified; E11.22 Type 2 diabetes mellitus with diabetic chronic kidney disease
CPT/HCPCS: 80053; 83036; 83970; 84100; 85027

== ENCOUNTER 2019-03-22 11:22 | Outpatient (CLI) | payer OTHER ==
[2019-03-22 12:02] LABS: PLATELET COUNT 194 K/uL (152-353)
[2019-03-22 12:36] LABS: POTASSIUM 4.2 mmol/L (3.6-5.2)
== END 2019-03-22 20:52 | disposition home or self-care (01) ==
LOC: LAB 11:22
PROVIDERS: Internal Medicine
DX: E11.65 Type 2 diabetes mellitus with hyperglycemia (principal); I10 Essential (primary) hypertension
CPT/HCPCS: 80053; 83036; 85027

== ENCOUNTER 2019-04-26 11:41 | Outpatient (CLI) | payer OTHER ==
[2019-04-26 12:01] LABS: PLATELET COUNT 178 K/uL (152-353)
[2019-04-26 12:12] LABS: POTASSIUM 4.8 mmol/L (3.6-5.2)
== END 2019-04-26 22:35 | disposition home or self-care (01) ==
LOC: LAB 11:41
PROVIDERS: Internal Medicine
DX: E11.65 Type 2 diabetes mellitus with hyperglycemia (principal); I10 Essential (primary) hypertension
CPT/HCPCS: 80053; 83036; 85027

== ENCOUNTER 2019-05-10 10:46 | Outpatient (CLI) | payer OTHER ==
[2019-05-10 11:03] LABS: PLATELET COUNT 175 K/uL (152-353)
[2019-05-10 11:12] LABS: POTASSIUM 4.3 mmol/L (3.6-5.2)
== END 2019-05-10 20:12 | disposition home or self-care (01) ==
LOC: LABW 10:46
PROVIDERS: Specialist
DX: Z01.810 Encounter for preprocedural cardiovascular examination (principal); R07.2 Precordial pain; R93.1 Abnormal findings on diagnostic imaging of heart and coronary circulation
CPT/HCPCS: 36415; 80053; 85027

== ENCOUNTER 2019-05-15 12:04 | Outpatient (CLI) | payer OTHER | END 2019-05-15 12:06 | disposition short-term general hospital (02) | LOC: AMB 12:04 | DX: M79.631 Pain in right forearm (principal); S50.11XA Contusion of right forearm, initial encounter | CPT/HCPCS: A0425; A0429 ==

== ENCOUNTER 2019-05-15 12:15 | Emergency (ER) | payer OTHER ==
[~2019-05-15] VITALS: Ht 160 cm; Wt 113.4 kg
[2019-05-15 12:22] VITALS: TEMP 99
[2019-05-15 13:10] VITALS: BP 175/84
== END 2019-05-15 13:13 | disposition home or self-care (01) ==
LOC: ED 12:15
DX: S50.11XA Contusion of right forearm, initial encounter (principal); I80.8 Phlebitis and thrombophlebitis of other sites
CPT/HCPCS: 99281; 99282

== ENCOUNTER 2019-05-17 12:30 | Outpatient (CLI) | payer OTHER ==
[2019-05-17 12:59] LABS: PLATELET COUNT 185 K/uL (152-353)
[2019-05-17 13:14] LABS: POTASSIUM 4.4 mmol/L (3.6-5.2)
== END 2019-05-17 19:35 | disposition home or self-care (01) ==
LOC: LAB 12:30
PROVIDERS: Internal Medicine Nephrology
DX: Z00.00 Encounter for general adult medical examination without abnormal findings (principal); E11.65 Type 2 diabetes mellitus with hyperglycemia; E11.22 Type 2 diabetes mellitus with diabetic chronic kidney disease; D64.89 Other specified anemias; E78.00 Pure hypercholesterolemia, unspecified; I12.9 Hypertensive chronic kidney disease with stage 1 through stage 4 chronic kidney disease, or unspecified chronic kidney disease; N18.3 Chronic kidney disease, stage 3 (moderate); N28.89 Other specified disorders of kidney and ureter; H54.3 Unqualified visual loss, both eyes
CPT/HCPCS: 80053; 81000; 82570; 83970; 84100; 84155; 85027; 87088

== ENCOUNTER 2019-06-14 11:45 | Outpatient (CLI) | payer OTHER ==
[2019-06-14 12:15] LABS: PLATELET COUNT 204 K/uL (152-353)
[2019-06-14 12:44] LABS: POTASSIUM 4.6 mmol/L (3.6-5.2)
== END 2019-06-14 19:56 | disposition home or self-care (01) ==
LOC: LAB 11:45
PROVIDERS: Internal Medicine
DX: E11.65 Type 2 diabetes mellitus with hyperglycemia (principal); I10 Essential (primary) hypertension
CPT/HCPCS: 80053; 83036; 85027

== ENCOUNTER 2019-08-16 10:02 | Outpatient (CLI) | payer OTHER ==
[2019-08-16 11:20] LABS: PLATELET COUNT 211 K/uL (152-353)
[2019-08-16 11:32] LABS: POTASSIUM 4.1 mmol/L (3.6-5.2)
== END 2019-08-16 19:37 | disposition home or self-care (01) ==
LOC: LAB 10:02
PROVIDERS: Internal Medicine
DX: E11.65 Type 2 diabetes mellitus with hyperglycemia (principal); I10 Essential (primary) hypertension
CPT/HCPCS: 80053; 83036; 85027

== ENCOUNTER 2019-09-23 13:52 | Outpatient (CLI) | payer OTHER | END 2019-09-23 22:25 | disposition home or self-care (01) | LOC: MAMMO 13:52 | DX: Z12.31 Encounter for screening mammogram for malignant neoplasm of breast (principal) ==

== ENCOUNTER 2019-10-18 11:08 | Outpatient (CLI) | payer OTHER ==
[2019-10-18 11:47] LABS: POTASSIUM 4.7 mmol/L (3.6-5.2)
[2019-10-18 13:07] LABS: PLATELET COUNT 198 K/uL (152-353)
== END 2019-10-18 21:10 | disposition home or self-care (01) ==
LOC: LAB 11:08
PROVIDERS: Internal Medicine
DX: E11.65 Type 2 diabetes mellitus with hyperglycemia (principal); I10 Essential (primary) hypertension
CPT/HCPCS: 80053; 83036; 85027

== ENCOUNTER 2019-11-15 10:07 | Outpatient (CLI) | payer OTHER ==
[2019-11-15 10:22] LABS: PLATELET COUNT 175 K/uL (152-353)
[2019-11-15 10:37] LABS: POTASSIUM 4.2 mmol/L (3.6-5.2)
== END 2019-11-15 23:59 | disposition home or self-care (01) ==
LOC: LAB 10:07
PROVIDERS: Internal Medicine Nephrology
DX: Z01.810 Encounter for preprocedural cardiovascular examination (principal); Z01.811 Encounter for preprocedural respiratory examination; Z01.812 Encounter for preprocedural laboratory examination; D64.9 Anemia, unspecified; H54.3 Unqualified visual loss, both eyes; N18.3 Chronic kidney disease, stage 3 (moderate); E11.22 Type 2 diabetes mellitus with diabetic chronic kidney disease; E11.9 Type 2 diabetes mellitus without complications; I10 Essential (primary) hypertension; E78.00 Pure hypercholesterolemia, unspecified; Z28.21 Immunization not carried out because of patient refusal; N28.9 Disorder of kidney and ureter, unspecified
CPT/HCPCS: 80053; 81000; 82306; 82570; 83036; 83970; 84100; 84155; 85027

== ENCOUNTER 2019-12-20 13:14 | Outpatient (CLI) | payer OTHER ==
[2019-12-20 13:54] LABS: PLATELET COUNT 190 K/uL (152-353)
[2019-12-20 14:03] LABS: POTASSIUM 4.3 mmol/L (3.6-5.2)
== END 2019-12-20 23:03 | disposition home or self-care (01) ==
LOC: LAB 13:14
PROVIDERS: Internal Medicine
DX: E11.65 Type 2 diabetes mellitus with hyperglycemia (principal); I10 Essential (primary) hypertension
CPT/HCPCS: 80053; 83036; 85027

== ENCOUNTER 2020-01-17 10:39 | Outpatient (CLI) | payer OTHER ==
[2020-01-17 11:04] LABS: PLATELET COUNT 222 K/uL (152-353)
[2020-01-17 11:12] LABS: POTASSIUM 4.5 mmol/L (3.6-5.2)
== END 2020-01-17 23:33 | disposition home or self-care (01) ==
LOC: LAB 10:39
PROVIDERS: Internal Medicine
DX: I10 Essential (primary) hypertension (principal); E11.65 Type 2 diabetes mellitus with hyperglycemia
CPT/HCPCS: 80053; 83036; 85027

== ENCOUNTER 2020-01-31 11:02 | Outpatient (CLI) | payer OTHER | END 2020-01-31 19:12 | disposition home or self-care (01) | LOC: RAD 11:02 | DX: M06.4 Inflammatory polyarthropathy (principal); M17.0 Bilateral primary osteoarthritis of knee; M47.816 Spondylosis without myelopathy or radiculopathy, lumbar region | CPT/HCPCS: 36415; 82784; 83883; 84165; 85651; 86140; 86200; 86430 ==

== ENCOUNTER 2020-02-14 10:19 | Outpatient (CLI) | payer OTHER ==
[2020-02-14 11:05] LABS: PLATELET COUNT 201 K/uL (152-353)
[2020-02-14 11:10] LABS: POTASSIUM 4.3 mmol/L (3.6-5.2)
== END 2020-02-14 20:29 | disposition home or self-care (01) ==
LOC: LAB 10:19
PROVIDERS: Internal Medicine
DX: E11.65 Type 2 diabetes mellitus with hyperglycemia (principal); I10 Essential (primary) hypertension; H54.8 Legal blindness, as defined in USA; Z86.73 Personal history of transient ischemic attack (TIA), and cerebral infarction without residual deficits; Z79.01 Long term (current) use of anticoagulants
CPT/HCPCS: 80053; 83036; 85027

== ENCOUNTER 2020-02-25 09:49 | Outpatient (CLI) | payer OTHER | END 2020-02-25 19:08 | disposition home or self-care (01) | LOC: RAD 09:49 | DX: M85.89 Other specified disorders of bone density and structure, multiple sites (principal) ==

== ENCOUNTER 2020-03-03 14:25 | Outpatient (CLI) | payer OTHER | END 2020-03-03 22:25 | disposition home or self-care (01) | LOC: MRI 14:25 | PROVIDERS: ATTEND Nurse Practitioner Family | DX: M25.512 Pain in left shoulder (principal); M54.2 Cervicalgia ==

== ENCOUNTER 2020-03-13 17:11 | Outpatient (CLI) | payer OTHER ==
[2020-03-13 17:53] LABS: PLATELET COUNT 214 K/uL (152-353)
[2020-03-13 18:00] LABS: POTASSIUM 4.4 mmol/L (3.6-5.2)
== END 2020-03-13 19:00 | disposition home or self-care (01) ==
LOC: LAB 17:11
PROVIDERS: ATTEND Internal Medicine Nephrology
DX: D64.89 Other specified anemias (principal); N18.30 Chronic kidney disease, stage 3 unspecified; E78.00 Pure hypercholesterolemia, unspecified; N28.89 Other specified disorders of kidney and ureter; E11.22 Type 2 diabetes mellitus with diabetic chronic kidney disease; H54.3 Unqualified visual loss, both eyes; I12.9 Hypertensive chronic kidney disease with stage 1 through stage 4 chronic kidney disease, or unspecified chronic kidney disease
CPT/HCPCS: 80053; 82306; 83036; 83970; 84100; 85027

== ENCOUNTER 2020-03-15 11:35 | Outpatient (CLI) | payer OTHER | END 2020-03-15 23:50 | disposition home or self-care (01) | LOC: LAB 11:35 | PROVIDERS: ATTEND Internal Medicine Nephrology | DX: D64.89 Other specified anemias (principal); E78.00 Pure hypercholesterolemia, unspecified; N18.30 Chronic kidney disease, stage 3 unspecified; N28.89 Other specified disorders of kidney and ureter; E11.22 Type 2 diabetes mellitus with diabetic chronic kidney disease; H54.3 Unqualified visual loss, both eyes; I12.9 Hypertensive chronic kidney disease with stage 1 through stage 4 chronic kidney disease, or unspecified chronic kidney disease | CPT/HCPCS: 81000; 82570; 84155; 87086; 87088 ==

== ENCOUNTER 2020-04-08 22:08 | Emergency (ER) | payer OTHER ==
[~2020-04-08] VITALS: Ht 160 cm; Wt 116.1 kg
[2020-04-08] MEDS ORDERED: AZIT250T3 PO (23:02)
[2020-04-08] MEDS ORDERED: CLARITIN10 MG PO (23:03)
[2020-04-08] MEDS ORDERED: TIZA4TAB5 PO (23:03)
[2020-04-08] MEDS ORDERED: PROTONIX20 MG PO (23:03)
[2020-04-08 23:30] LABS: PLATELET COUNT 186 K/uL (152-353)
[2020-04-08 23:40] LABS: POTASSIUM 4.5 mmol/L (3.6-5.2); SODIUM 131 mmol/L (136-145)
[2020-04-09 00:35] VITALS: BP 149/81; TEMP 97.7
== END 2020-04-09 00:35 | disposition home or self-care (01) ==
LOC: ED 22:08
PROVIDERS: Family Medicine
DX: N39.0 Urinary tract infection, site not specified (principal); E86.0 Dehydration; Z20.828 Contact with and (suspected) exposure to other viral communicable diseases
CPT/HCPCS: 80053; 81000; 82550; 82553; 83605; 84484; 85027; 85379; 87040; 87086; 87088; 87635; 93005; 96365; 96374; 99284; J0696; U0003

== ENCOUNTER 2020-04-10 10:44 | Outpatient (CLI) | payer OTHER ==
[~2020-04-10 10:44] MED LIST changes: +AZIT250T3 PO; +CLARITIN10 MG PO; +PROTONIX20 MG PO; +TIZA4TAB5 PO
[2020-04-10 11:08] LABS: PLATELET COUNT 175 K/uL (152-353)
[2020-04-10 11:15] LABS: POTASSIUM 4.9 mmol/L (3.6-5.2)
== END 2020-04-10 19:37 | disposition home or self-care (01) ==
LOC: LAB 10:44
PROVIDERS: ATTEND Internal Medicine
DX: E11.65 Type 2 diabetes mellitus with hyperglycemia (principal); I10 Essential (primary) hypertension
CPT/HCPCS: 80053; 83036; 85027

== ENCOUNTER 2020-05-08 11:15 | Outpatient (CLI) | payer OTHER ==
[2020-05-08 11:37] LABS: PLATELET COUNT 216 K/uL (152-353)
[2020-05-08 11:51] LABS: POTASSIUM 4.6 mmol/L (3.6-5.2)
== END 2020-05-08 19:22 | disposition home or self-care (01) ==
LOC: LAB 11:15
PROVIDERS: ATTEND Internal Medicine
DX: E11.65 Type 2 diabetes mellitus with hyperglycemia (principal); Z79.01 Long term (current) use of anticoagulants; I10 Essential (primary) hypertension
CPT/HCPCS: 80053; 83036; 85027

== ENCOUNTER 2020-06-05 10:48 | Outpatient (CLI) | payer OTHER ==
[2020-06-05 11:59] LABS: PLATELET COUNT 221 K/uL (152-353)
[2020-06-05 12:14] LABS: POTASSIUM 4.4 mmol/L (3.6-5.2)
== END 2020-06-05 19:33 | disposition home or self-care (01) ==
LOC: LAB 10:48
PROVIDERS: ATTEND Internal Medicine
DX: E11.65 Type 2 diabetes mellitus with hyperglycemia (principal)
CPT/HCPCS: 80053; 83036; 85027

== ENCOUNTER 2020-06-14 18:03 | Inpatient (IN) | payer OTHER ==
[2020-06-14] VITALS (7 sets, daily range): BP systolic 167–186; BP diastolic 72–89; TEMP 98.5
[~2020-06-14] VITALS: Ht 170.2 cm; Wt 119.0 kg
[2020-06-14 18:38] LABS: PLATELET COUNT 213 K/uL (152-353)
[2020-06-14 18:45] LABS: POTASSIUM 4.4 mmol/L (3.6-5.2); SODIUM 134 mmol/L (136-145)
[2020-06-14 20:00] LABS: PARTIAL THROMBOPLASTIN TIME 25.3 SECONDS (24.5-33.6)
[2020-06-15 01:04] VITALS: BP 198/95; TEMP 97.8; BMI 47.2
--- NOTE | 2020-06-15 03:25 | NUR ---
06/14/20 AT 2117 PATIENT ADMITTED TO ROOM# 1110 VIA STRETCHER FROM THE ER. PATIENT ALERT AND ORIENTED X 4. PATIENT ORIENTED TO ROOM AND CALL SYSTEM AND PATIENT STATES SHE IS LEGALLY BLIND, COTTON BALLS TAPED TO CALL LIGHT AND TV REMOTE SO PATIENT CAN IDENTIFY WHICH BUTTON TO [facility]. PATIENT STATES SHE UNDERSTANDS AND CAN LOCATE WHICH BUTTON TO [facility]. CALL LIGHT WITHIN REACH AND WILL CONTINUE TO MONITOR.
[2020-06-15] MEDS ORDERED: LANTUS100 UNIT/M SC (03:49)
[2020-06-15] MEDS ORDERED: FUROSEMIDE20 MG PO (03:50)
[2020-06-15] MEDS ORDERED: VITAMIN D50000 UNIT PO (03:51)
[2020-06-15] MEDS ORDERED: GABA300C2 PO (03:52)
[2020-06-15] MEDS ORDERED: AZEL137S NAS (03:53)
[2020-06-15] MEDS ORDERED: DICLOFENAC SODIUM1 % TD (03:54)
[2020-06-15 04:00] VITALS: BP 196/94; TEMP 97.6
[2020-06-15 07:45] VITALS: BP 154/84; TEMP 98.3
--- NOTE | 2020-06-15 09:34 | NUR ---
INFORMED DR. GOMEZ OF PT ORDERS FOR NITROPASTE, DR. GOMEZ STATES TO DC NITRO PASTE AT THIS TIME, NO FURTHER ORDERS GIVEN
[2020-06-15 11:43] VITALS: BP 142/81; TEMP 98.6
--- NOTE | 2020-06-15 15:49 | NUR ---
REPORTED TO DR. GOMEZ PT'S BS AT 440, HE STATES TO GIVE 10U REGULAR INSULIN NOW AND RECHECK IT IN AN HOUR THEN TREAT BS NEEDED WITH REGULAR INSULIN, HE ALSO ORDERS TO CHANGE LEVIMIR 25 UNITS BID TO 40 UNITS BID, NO FURTHER ORDERS GIVEN AT THIS TIME
[2020-06-15 15:55] VITALS: BP 136/69; TEMP 98.2
--- NOTE | 2020-06-15 17:08 | NUR ---
PT BS 417 AFTER 10U OF REGULAR INSULIN, DR. GOMEZ MADE AWARE, GIVING 10 MORE UNITS OF NOVOLIN R AT THIS TIME AND WILL RECHECK BS IN AN HOUR
[2020-06-15 20:00] VITALS: BP 130/58; TEMP 97.9
[2020-06-16] VITALS (7 sets, daily range): BP systolic 115–143; BP diastolic 56–75; TEMP 97.6–99.7
[2020-06-16 07:28] LABS: PLATELET COUNT 206 K/uL (152-353)
--- NOTE | 2020-06-16 18:41 | NUR ---
06/16/2020 1840 RESTING ON RT SIDE TALKING ON PHONE NO C/O VOICED.CC
--- NOTE | 2020-06-16 20:47 | NUR ---
PO MEDS WERE GIVEN AND TOLERATED AT THIS TIME, LASIX GIVEN IVP AT THIS TIME, AND APPROPRIATE INSULINS GIVEN AT THIS TIME. PT IS CURRENTLY ON THE PHONE DURING MED ADMINSTRATION. REINFORCED TEACHING ON PARHAM STERILITY.
[2020-06-17] VITALS (7 sets, daily range): BP systolic 112–157; BP diastolic 61–81; TEMP 97.8–98.7; Ht 170.2 cm; Wt 119.0 kg
--- NOTE | 2020-06-17 01:45 | NUR ---
PT IS RESTING QUIETLY WITH SIDE RAILS UP TIMES TWO WITH BED IN LOWEST POSITION. PT SEEMS TO BE IN NO DISTRESS
--- NOTE | 2020-06-17 04:39 | NUR ---
2100: GAVE PATIENTS SCHEDULED LONG ACTING INSULIN, WELL COVINED HER WITH SLIDING SCALE REGULAR INSULIN, 6 UNITS. 0000: PATIENT REASSESED AND SHOWS NO SIGNS OF HYPOGLYCEMIA. PATIENT DENIES PAIN AND IS RESTING QUIETLY
--- NOTE | 2020-06-17 18:01 | NUR ---
0920 BLADDER TRAINING STARTED. 10AM PT STATED SHE NEEDED TO URINATE. PARHAM UNCLAMPED PT PUT OUT 100 ML OF CLEAR YELLOW URINE. 2PM PT CALLED STATED SHE NEEDED TO URINATE. PARHAM UNCLAMPED 200 ML CLEAR YELLOW URINE PUT OUT 1506 PT CALLED NURSE'S STATION STATED SHE NEEDED TO VOID 200 ML CLEAR YELLOW URINE OUT PUT. 1530 10ML FLUID ASPIRATED FROM PARHAM BULB PARHAM CATH WAS REMOVED WITH TIP INTACT. 1740 PT WAS ABLE VOID WITH NO COMPLICATIONS
--- NOTE | 2020-06-18 03:53 | NUR ---
PT HAS BEEN SLEEPING IN CHAIR MOST OF NIGHT. NO COMPLAINTS VOICED. INSTRUCTED PT ON FLUID RESTRICTION. PT VERBALIZED UNDERSTANDING BUT KEEPS ASKING FOR SOMETHING TO DRINK. NEEDS REINFORCING
[2020-06-18 04:05] VITALS: BP 155/73; TEMP 98.3
[2020-06-18 08:00] VITALS: BP 155/67; TEMP 98.2
[2020-06-18 08:40] LABS: PLATELET COUNT 187 K/uL (152-353)
[2020-06-18 08:44] LABS: POTASSIUM 4.7 mmol/L (3.6-5.2)
[2020-06-18 12:00] VITALS: BP 165/61; TEMP 98.1
[2020-06-18 16:00] VITALS: BP 128/75; TEMP 98.1
--- NOTE | 2020-06-18 18:39 | NUR ---
PT STATES HER CHEST IS ABOUT TO FALL OFF STATES IT IS ITCHING. MD NOTIFIED. NEW ORDERS GIVEN TO D/C TELE
[2020-06-18 20:00] VITALS: BP 166/79; TEMP 98.3
[2020-06-19] VITALS: BP 145/76; TEMP 98.6
[2020-06-19 04:09] VITALS: BP 122/61; TEMP 98.5
[2020-06-19 05:01] LABS: POTASSIUM 4.7 mmol/L (3.6-5.2)
[2020-06-19 05:29] LABS: PLATELET COUNT 217 K/uL (152-353)
--- NOTE | 2020-06-19 07:30 | NUR ---
ENTERED PT'S ROOM, PT IS SITTING UPRIGHT IN THE CHAIR WITH THE LIGHTS OFF AND ASLEEP. I WOKE THE PT TO BEGIN ASSESSMENT. PT STATES THAT SHE IS IN NO PAIN THIS AM AND IS A&OX4. HEART SOUNDS ARE REGULAR WITH A NORMAL SINUS RHYTHM. LUNGS SOUND CLEAR IN ALL 5 LOBES. SOME EDEMA IS SEEN IN THE LOWER LIMBS BILATERALLY BUT NOT PITTING. GASTIC SOUNDS ARE HYPOACTIVE. PERIPHERAL PULSES ARE WEAK AND DIFFICULT TO PALPATE. NAD IS NOTED AT THIS TIME. WILL CONTINUE TO MONITOR.
[2020-06-19 08:00] VITALS: BP 156/77; TEMP 98.2
[2020-06-19 12:00] VITALS: BP 120/48; TEMP 97.9
--- NOTE | 2020-06-19 14:00 | NUR ---
EDUCATED PT VERBALLY ON DISCHARGE INSTRUCTIONS. PT VERBALIZED UNDERSTANDING OF DISCHARGE INSTRUCTIONS. PT IS CONTACTING A FRIEND TO COME ESCORT HER HOME. IV WAS REMOVED BY THIS COLLAR POINTER WITH CATHETER STILL INTACT.
--- NOTE | 2020-06-19 14:25 | NUR ---
PT WAS ESCORTED OUT OF THE HOSPITAL VIA WHEELCHAIR. HOME MEDICATIONS AND DISCHARGE INSTRUCTIONS WERE GIVEN TO PT TO [facility]. PT WAS ASSISTED INTO FRIEND'S VEHICLE. NAD WAS NOTED DURING THE DISCHARGE FROM HOSPITAL.
== END 2020-06-19 18:40 | disposition home or self-care (01) | DRG 175 ==
LOC: ED 18:03 → MED/SURG 19:50
PROVIDERS: Emergency Medicine; ADMIT Internal Medicine Endocrinology, Diabetes & Metabolism; ATTEND Internal Medicine Endocrinology, Diabetes & Metabolism
DX: I26.99 Other pulmonary embolism without acute cor pulmonale (principal); J96.01 Acute respiratory failure with hypoxia; Z68.42 Body mass index [BMI] 45.0-49.9, adult; G40.802 Other epilepsy, not intractable, without status epilepticus; E11.9 Type 2 diabetes mellitus without complications; E11.65 Type 2 diabetes mellitus with hyperglycemia; Z86.73 Personal history of transient ischemic attack (TIA), and cerebral infarction without residual deficits; E78.49 Other hyperlipidemia; F32.89 Other specified depressive episodes; E66.01 Morbid (severe) obesity due to excess calories; Z71.3 Dietary counseling and surveillance; K21.9 Gastro-esophageal reflux disease without esophagitis; I11.0 Hypertensive heart disease with heart failure; I50.9 Heart failure, unspecified
CPT/HCPCS: 36415; 36416; 36600; 80048; 80053; 80061; 81000; 82550; 82805; 83605; 83735; 83880; 84484; 85027; 85379; 85610; 85730; 87040; 87502; 87635; 93005; 94664; 94760; 96374; 96375; 99284; A9540; A9567; J1650; J1815; J1940; J2930; U0003

== ENCOUNTER 2020-06-20 11:53 | Outpatient (CLI) | payer OTHER ==
[~2020-06-20 11:53] MED LIST changes: +AZEL137S NAS; +DICLOFENAC SODIUM1 % TD; +FUROSEMIDE20 MG PO; +LANTUS100 UNIT/M SC; +VITAMIN D50000 UNIT PO
[2020-06-20 14:35] LABS: POTASSIUM 4.7 mmol/L (3.6-5.2)
[2020-06-20 15:03] LABS: PLATELET COUNT 204 K/uL (152-353)
== END 2020-06-20 20:14 | disposition home or self-care (01) ==
LOC: LAB 11:53
PROVIDERS: ATTEND Internal Medicine Nephrology
DX: D64.89 Other specified anemias (principal); N18.30 Chronic kidney disease, stage 3 unspecified; E11.22 Type 2 diabetes mellitus with diabetic chronic kidney disease; E78.00 Pure hypercholesterolemia, unspecified; N28.89 Other specified disorders of kidney and ureter; Z95.9 Presence of cardiac and vascular implant and graft, unspecified; I12.9 Hypertensive chronic kidney disease with stage 1 through stage 4 chronic kidney disease, or unspecified chronic kidney disease
CPT/HCPCS: 80053; 81000; 82306; 82570; 83970; 84100; 84155; 85027

== ENCOUNTER 2020-07-03 12:42 | Outpatient (CLI) | payer OTHER ==
[2020-07-03 13:06] LABS: PLATELET COUNT 213 K/uL (152-353)
[2020-07-03 13:16] LABS: POTASSIUM 4.4 mmol/L (3.6-5.2)
== END 2020-07-03 22:15 | disposition home or self-care (01) ==
LOC: LAB 12:42
PROVIDERS: ATTEND Internal Medicine
DX: E11.65 Type 2 diabetes mellitus with hyperglycemia (principal); Z79.01 Long term (current) use of anticoagulants; I50.9 Heart failure, unspecified; Z86.711 Personal history of pulmonary embolism
CPT/HCPCS: 80053; 85027

== ENCOUNTER 2020-07-17 10:08 | Outpatient (CLI) | payer OTHER ==
[2020-07-17 10:41] LABS: PLATELET COUNT 189 K/uL (152-353)
[2020-07-17 11:01] LABS: POTASSIUM 4.6 mmol/L (3.6-5.2)
== END 2020-07-17 21:36 | disposition home or self-care (01) ==
LOC: LAB 10:08
PROVIDERS: ATTEND Nurse Practitioner Family
DX: I26.99 Other pulmonary embolism without acute cor pulmonale (principal); E11.65 Type 2 diabetes mellitus with hyperglycemia; I50.9 Heart failure, unspecified
CPT/HCPCS: 80053; 85027

== ENCOUNTER 2020-07-31 09:40 | Outpatient (CLI) | payer OTHER ==
[2020-07-31 10:12] LABS: PLATELET COUNT 204 K/uL (152-353)
[2020-07-31 10:55] LABS: POTASSIUM 4.5 mmol/L (3.6-5.2)
== END 2020-07-31 19:11 | disposition home or self-care (01) ==
LOC: LAB 09:40 → EDSTATUS 09:49 → LAB 19:11
PROVIDERS: ATTEND Internal Medicine
DX: E11.65 Type 2 diabetes mellitus with hyperglycemia (principal); I10 Essential (primary) hypertension; Z86.711 Personal history of pulmonary embolism
CPT/HCPCS: 80053; 85027

== ENCOUNTER 2020-08-14 10:15 | Outpatient (CLI) | payer OTHER ==
[2020-08-14 10:32] LABS: PLATELET COUNT 243 K/uL (152-353)
[2020-08-14 10:50] LABS: POTASSIUM 4.4 mmol/L (3.6-5.2)
== END 2020-08-14 19:31 | disposition home or self-care (01) ==
LOC: LAB 10:15
PROVIDERS: ATTEND Nurse Practitioner Family
DX: I26.99 Other pulmonary embolism without acute cor pulmonale (principal); E11.65 Type 2 diabetes mellitus with hyperglycemia; I50.9 Heart failure, unspecified
CPT/HCPCS: 80053; 85027

== ENCOUNTER 2020-08-28 11:29 | Outpatient (CLI) | payer OTHER ==
[2020-08-28 12:22] LABS: POTASSIUM 4.3 mmol/L (3.6-5.2)
[2020-08-28 12:53] LABS: PLATELET COUNT 215 K/uL (152-353)
== END 2020-08-28 23:40 | disposition home or self-care (01) ==
LOC: LAB 11:29
PROVIDERS: ATTEND Nurse Practitioner Family
DX: E11.9 Type 2 diabetes mellitus without complications (principal); I50.9 Heart failure, unspecified; Z86.711 Personal history of pulmonary embolism
CPT/HCPCS: 80053; 83036; 85027

== ENCOUNTER 2020-09-11 10:29 | Outpatient (CLI) | payer OTHER ==
[2020-09-11 10:50] LABS: PLATELET COUNT 237 K/uL (152-353)
[2020-09-11 11:14] LABS: POTASSIUM 4.8 mmol/L (3.6-5.2)
== END 2020-09-11 20:58 | disposition home or self-care (01) ==
LOC: LAB 10:29
PROVIDERS: ATTEND Nurse Practitioner Family
DX: E11.65 Type 2 diabetes mellitus with hyperglycemia (principal); I10 Essential (primary) hypertension; Z86.711 Personal history of pulmonary embolism; I50.9 Heart failure, unspecified
CPT/HCPCS: 80053; 85027

== ENCOUNTER 2020-09-25 10:44 | Outpatient (CLI) | payer OTHER ==
[2020-09-25 11:04] LABS: PLATELET COUNT 181 K/uL (152-353)
[2020-09-25 11:19] LABS: POTASSIUM 4.7 mmol/L (3.6-5.2)
== END 2020-09-25 21:47 | disposition home or self-care (01) ==
LOC: LAB 10:44
PROVIDERS: ATTEND Nurse Practitioner Family
DX: E11.65 Type 2 diabetes mellitus with hyperglycemia (principal); Z86.711 Personal history of pulmonary embolism; I50.9 Heart failure, unspecified
CPT/HCPCS: 80053; 85027

== ENCOUNTER 2020-10-16 12:57 | Outpatient (CLI) | payer OTHER ==
[2020-10-24 13:12] LABS: POTASSIUM 4.7 mmol/L (3.6-5.2)
[2020-10-24 13:16] LABS: PLATELET COUNT 240 K/uL (152-353)
== END 2020-10-16 17:00 | disposition home or self-care (01) ==
LOC: LAB 12:57
PROVIDERS: ATTEND Internal Medicine
DX: E11.9 Type 2 diabetes mellitus without complications (principal); I50.9 Heart failure, unspecified; Z86.711 Personal history of pulmonary embolism
CPT/HCPCS: 80053; 85027

== ENCOUNTER 2020-10-30 10:55 | Outpatient (CLI) | payer OTHER ==
[2020-10-30 11:34] LABS: PLATELET COUNT 188 K/uL (152-353)
[2020-10-30 11:43] LABS: POTASSIUM 4.4 mmol/L (3.6-5.2)
== END 2020-10-30 21:25 | disposition home or self-care (01) ==
LOC: LAB 10:55
PROVIDERS: ATTEND Internal Medicine Nephrology
DX: D64.89 Other specified anemias (principal); E78.00 Pure hypercholesterolemia, unspecified; N18.30 Chronic kidney disease, stage 3 unspecified; N28.89 Other specified disorders of kidney and ureter; E11.22 Type 2 diabetes mellitus with diabetic chronic kidney disease; H54.3 Unqualified visual loss, both eyes; I26.99 Other pulmonary embolism without acute cor pulmonale; Z87.39 Personal history of other diseases of the musculoskeletal system and connective tissue; Z91.11 Patient's noncompliance with dietary regimen; Z91.14 Patient's other noncompliance with medication regimen; Z95.9 Presence of cardiac and vascular implant and graft, unspecified; Z28.21 Immunization not carried out because of patient refusal; I12.9 Hypertensive chronic kidney disease with stage 1 through stage 4 chronic kidney disease, or unspecified chronic kidney disease
CPT/HCPCS: 80053; 82306; 83970; 84100; 85027

== ENCOUNTER 2020-10-31 10:16 | Outpatient (CLI) | payer OTHER | END 2020-10-31 21:55 | disposition home or self-care (01) | LOC: LAB 10:16 | PROVIDERS: ATTEND Internal Medicine Nephrology | DX: D64.89 Other specified anemias (principal); E78.00 Pure hypercholesterolemia, unspecified; N18.30 Chronic kidney disease, stage 3 unspecified; N28.89 Other specified disorders of kidney and ureter; E11.22 Type 2 diabetes mellitus with diabetic chronic kidney disease; H54.3 Unqualified visual loss, both eyes; I26.99 Other pulmonary embolism without acute cor pulmonale; Z87.39 Personal history of other diseases of the musculoskeletal system and connective tissue; Z91.11 Patient's noncompliance with dietary regimen; Z91.14 Patient's other noncompliance with medication regimen; Z95.9 Presence of cardiac and vascular implant and graft, unspecified; Z28.21 Immunization not carried out because of patient refusal; I12.9 Hypertensive chronic kidney disease with stage 1 through stage 4 chronic kidney disease, or unspecified chronic kidney disease | CPT/HCPCS: 81000; 82570; 84155 ==

== ENCOUNTER 2020-11-13 16:02 | Emergency (ER) | payer OTHER ==
[~2020-11-13] VITALS: Ht 170.2 cm; Wt 118.8 kg
[2020-11-13 16:54] LABS: PLATELET COUNT 214 K/uL (152-353)
[2020-11-13 17:03] LABS: POTASSIUM 4.5 mmol/L (3.6-5.2)
[2020-11-13 21:15] VITALS: BP 169/70; TEMP 97.6
== END 2020-11-13 21:11 | disposition home or self-care (01) ==
LOC: ED 16:02
PROVIDERS: Emergency Medicine Emergency Medical Services
DX: R10.84 Generalized abdominal pain (principal); N39.0 Urinary tract infection, site not specified
CPT/HCPCS: 80053; 81000; 85027; 87040; 87077; 87086; 87088; 87186; 96360; 96365; 96375; 99284; J0360; J0696; J1815; J2270; J2405

== ENCOUNTER 2020-11-15 13:15 | Outpatient (CLI) | payer OTHER ==
[~2020-11-15] VITALS: Ht 160 cm; Wt 117.9 kg
== END 2020-11-15 23:39 | disposition home or self-care (01) ==
LOC: DIABINF 13:15
PROVIDERS: ATTEND Internal Medicine Endocrinology, Diabetes & Metabolism
DX: E11.65 Type 2 diabetes mellitus with hyperglycemia (principal); N18.30 Chronic kidney disease, stage 3 unspecified; Z86.73 Personal history of transient ischemic attack (TIA), and cerebral infarction without residual deficits; I26.99 Other pulmonary embolism without acute cor pulmonale; Z79.01 Long term (current) use of anticoagulants; H54.8 Legal blindness, as defined in USA; I10 Essential (primary) hypertension; E78.2 Mixed hyperlipidemia; K21.9 Gastro-esophageal reflux disease without esophagitis; R56.9 Unspecified convulsions
CPT/HCPCS: 82948; 96365; 96366; 96521; J1815; J1817

== ENCOUNTER 2020-11-16 13:06 | Outpatient (CLI) | payer OTHER ==
[~2020-11-16] VITALS: Ht 160 cm; Wt 117.9 kg
== END 2020-11-16 22:08 | disposition home or self-care (01) ==
LOC: DIABINF 13:06
PROVIDERS: ATTEND Internal Medicine Endocrinology, Diabetes & Metabolism
DX: E11.65 Type 2 diabetes mellitus with hyperglycemia (principal); N18.9 Chronic kidney disease, unspecified; Z86.73 Personal history of transient ischemic attack (TIA), and cerebral infarction without residual deficits; I26.99 Other pulmonary embolism without acute cor pulmonale; Z79.01 Long term (current) use of anticoagulants; H54.8 Legal blindness, as defined in USA; I10 Essential (primary) hypertension; E78.2 Mixed hyperlipidemia; K21.9 Gastro-esophageal reflux disease without esophagitis; R56.9 Unspecified convulsions
CPT/HCPCS: 82948; 96365; 96366; 96521; J1815; J1817

== ENCOUNTER 2020-11-22 08:14 | Outpatient (CLI) | payer OTHER ==
[~2020-11-22] VITALS: Ht 160 cm; Wt 117.9 kg
== END 2020-11-22 12:32 | disposition home or self-care (01) ==
LOC: DIABINF 08:14
PROVIDERS: ATTEND Internal Medicine Endocrinology, Diabetes & Metabolism
DX: E11.65 Type 2 diabetes mellitus with hyperglycemia (principal); N18.9 Chronic kidney disease, unspecified; Z86.73 Personal history of transient ischemic attack (TIA), and cerebral infarction without residual deficits; I26.99 Other pulmonary embolism without acute cor pulmonale; Z79.01 Long term (current) use of anticoagulants; H54.8 Legal blindness, as defined in USA; I10 Essential (primary) hypertension; E78.2 Mixed hyperlipidemia; K21.9 Gastro-esophageal reflux disease without esophagitis; R56.9 Unspecified convulsions
CPT/HCPCS: 82948; 96365; 96366; 96521; J1815; J1817

== ENCOUNTER 2020-11-23 11:09 | Outpatient (CLI) | payer OTHER | END 2020-11-23 20:34 | disposition home or self-care (01) | LOC: LAB 11:09 | PROVIDERS: ATTEND Nurse Practitioner Family | DX: N18.4 Chronic kidney disease, stage 4 (severe) (principal); R35.0 Frequency of micturition; R39.15 Urgency of urination | CPT/HCPCS: 81000 ==

== ENCOUNTER 2020-11-23 13:02 | Outpatient (CLI) | payer OTHER ==
[~2020-11-23] VITALS: Ht 160 cm; Wt 117.9 kg
== END 2020-11-23 20:35 | disposition home or self-care (01) ==
LOC: DIABINF 13:02
PROVIDERS: ATTEND Internal Medicine Endocrinology, Diabetes & Metabolism
DX: E11.65 Type 2 diabetes mellitus with hyperglycemia (principal); N18.9 Chronic kidney disease, unspecified; Z86.73 Personal history of transient ischemic attack (TIA), and cerebral infarction without residual deficits; I26.99 Other pulmonary embolism without acute cor pulmonale; Z79.01 Long term (current) use of anticoagulants; H54.8 Legal blindness, as defined in USA; I10 Essential (primary) hypertension; E78.2 Mixed hyperlipidemia; K21.9 Gastro-esophageal reflux disease without esophagitis; R56.9 Unspecified convulsions
CPT/HCPCS: 82948; 96365; 96366; 96521; J1815; J1817

== ENCOUNTER 2020-11-28 11:17 | Outpatient (CLI) | payer OTHER ==
[2020-11-28 11:55] LABS: PLATELET COUNT 200 K/uL (152-353)
[2020-11-28 12:10] LABS: POTASSIUM 4.4 mmol/L (3.6-5.2)
== END 2020-11-28 19:24 | disposition home or self-care (01) ==
LOC: LAB 11:17
PROVIDERS: ATTEND Internal Medicine
DX: E11.65 Type 2 diabetes mellitus with hyperglycemia (principal); I10 Essential (primary) hypertension
CPT/HCPCS: 80053; 83036; 85027

== ENCOUNTER 2020-11-29 13:26 | Outpatient (CLI) | payer OTHER ==
[~2020-11-29] VITALS: Ht 160 cm; Wt 117.9 kg
== END 2020-11-29 19:03 | disposition home or self-care (01) ==
LOC: DIABINF 13:26
PROVIDERS: ATTEND Internal Medicine Endocrinology, Diabetes & Metabolism
DX: E11.65 Type 2 diabetes mellitus with hyperglycemia (principal); N18.9 Chronic kidney disease, unspecified; Z86.73 Personal history of transient ischemic attack (TIA), and cerebral infarction without residual deficits; I26.99 Other pulmonary embolism without acute cor pulmonale; Z79.01 Long term (current) use of anticoagulants; H54.8 Legal blindness, as defined in USA; I10 Essential (primary) hypertension; E78.2 Mixed hyperlipidemia; K21.9 Gastro-esophageal reflux disease without esophagitis; R56.9 Unspecified convulsions
CPT/HCPCS: 82948; 96365; 96366; 96521; J1815; J1817

== ENCOUNTER 2020-11-30 12:32 | Outpatient (CLI) | payer OTHER ==
[~2020-11-30] VITALS: Ht 160 cm; Wt 117.9 kg
== END 2020-11-30 22:39 | disposition home or self-care (01) ==
LOC: DIABINF 12:32
PROVIDERS: ATTEND Internal Medicine Endocrinology, Diabetes & Metabolism
DX: E11.65 Type 2 diabetes mellitus with hyperglycemia (principal); N18.9 Chronic kidney disease, unspecified; Z86.73 Personal history of transient ischemic attack (TIA), and cerebral infarction without residual deficits; I26.99 Other pulmonary embolism without acute cor pulmonale; Z79.01 Long term (current) use of anticoagulants; H54.8 Legal blindness, as defined in USA; I10 Essential (primary) hypertension; E78.2 Mixed hyperlipidemia; K21.9 Gastro-esophageal reflux disease without esophagitis; R56.9 Unspecified convulsions
CPT/HCPCS: 82948; 96365; 96366; 96521; J1815; J1817

== ENCOUNTER 2020-12-06 13:14 | Outpatient (CLI) | payer OTHER ==
[~2020-12-06] VITALS: Ht 160 cm; Wt 117.9 kg
== END 2020-12-06 21:15 | disposition home or self-care (01) ==
LOC: DIABINF 13:14
PROVIDERS: ATTEND Internal Medicine Endocrinology, Diabetes & Metabolism
DX: E11.65 Type 2 diabetes mellitus with hyperglycemia (principal); N18.9 Chronic kidney disease, unspecified; Z86.73 Personal history of transient ischemic attack (TIA), and cerebral infarction without residual deficits; I26.99 Other pulmonary embolism without acute cor pulmonale; Z79.01 Long term (current) use of anticoagulants; H54.8 Legal blindness, as defined in USA; I10 Essential (primary) hypertension; E78.2 Mixed hyperlipidemia; K21.9 Gastro-esophageal reflux disease without esophagitis; R56.9 Unspecified convulsions
CPT/HCPCS: 82948; 96365; 96366; 96521; J1815; J1817

== ENCOUNTER 2020-12-07 12:45 | Outpatient (CLI) | payer OTHER ==
[~2020-12-07] VITALS: Ht 160 cm; Wt 117.9 kg
== END 2020-12-07 19:39 | disposition home or self-care (01) ==
LOC: DIABINF 12:45
PROVIDERS: ATTEND Internal Medicine Endocrinology, Diabetes & Metabolism
DX: E11.65 Type 2 diabetes mellitus with hyperglycemia (principal); N18.9 Chronic kidney disease, unspecified; Z86.73 Personal history of transient ischemic attack (TIA), and cerebral infarction without residual deficits; I26.99 Other pulmonary embolism without acute cor pulmonale; Z79.01 Long term (current) use of anticoagulants; H54.8 Legal blindness, as defined in USA; I10 Essential (primary) hypertension; E78.2 Mixed hyperlipidemia; K21.9 Gastro-esophageal reflux disease without esophagitis; R56.9 Unspecified convulsions
CPT/HCPCS: 82948; 96365; 96366; 96521; J1815; J1817

== ENCOUNTER 2020-12-14 13:22 | Outpatient (CLI) | payer OTHER ==
[~2020-12-14] VITALS: Ht 160 cm; Wt 117.9 kg
== END 2020-12-14 20:19 | disposition home or self-care (01) ==
LOC: DIABINF 13:22
PROVIDERS: ATTEND Internal Medicine Endocrinology, Diabetes & Metabolism
DX: E11.65 Type 2 diabetes mellitus with hyperglycemia (principal); N18.9 Chronic kidney disease, unspecified; Z86.73 Personal history of transient ischemic attack (TIA), and cerebral infarction without residual deficits; I26.99 Other pulmonary embolism without acute cor pulmonale; Z79.01 Long term (current) use of anticoagulants; H54.8 Legal blindness, as defined in USA; I10 Essential (primary) hypertension; E78.2 Mixed hyperlipidemia; K21.9 Gastro-esophageal reflux disease without esophagitis; R56.9 Unspecified convulsions
CPT/HCPCS: 82948; 96365; 96366; 96521; J1815; J1817

== ENCOUNTER 2020-12-21 14:23 | Outpatient (CLI) | payer OTHER ==
[~2020-12-21] VITALS: Ht 160 cm; Wt 117.9 kg
== END 2020-12-21 22:18 | disposition home or self-care (01) ==
LOC: DIABINF 14:23
PROVIDERS: ATTEND Internal Medicine Endocrinology, Diabetes & Metabolism
DX: E11.65 Type 2 diabetes mellitus with hyperglycemia (principal); N18.9 Chronic kidney disease, unspecified; Z86.73 Personal history of transient ischemic attack (TIA), and cerebral infarction without residual deficits; I26.99 Other pulmonary embolism without acute cor pulmonale; Z79.01 Long term (current) use of anticoagulants; H54.8 Legal blindness, as defined in USA; I10 Essential (primary) hypertension; E78.2 Mixed hyperlipidemia; K21.9 Gastro-esophageal reflux disease without esophagitis; R56.9 Unspecified convulsions
CPT/HCPCS: 82948; 96365; 96366; 96521; J1815; J1817

== ENCOUNTER 2020-12-26 10:12 | Outpatient (CLI) | payer OTHER ==
[2020-12-26 10:42] LABS: PLATELET COUNT 259 K/uL (152-353)
[2020-12-26 11:12] LABS: POTASSIUM 4.6 mmol/L (3.6-5.2)
== END 2020-12-26 20:34 | disposition home or self-care (01) ==
LOC: LAB 10:12
PROVIDERS: ATTEND Nurse Practitioner Family
DX: E11.65 Type 2 diabetes mellitus with hyperglycemia (principal); I10 Essential (primary) hypertension
CPT/HCPCS: 80053; 85027

== ENCOUNTER 2021-01-25 10:15 | Outpatient (CLI) | payer OTHER ==
[2021-01-25 10:40] LABS: PLATELET COUNT 239 K/uL (152-353)
[2021-01-25 11:33] LABS: POTASSIUM 4.4 mmol/L (3.6-5.2)
== END 2021-01-25 19:31 | disposition home or self-care (01) ==
LOC: LAB 10:15
PROVIDERS: ATTEND Nurse Practitioner Family
DX: E11.65 Type 2 diabetes mellitus with hyperglycemia (principal); Z86.711 Personal history of pulmonary embolism; I50.9 Heart failure, unspecified; I11.0 Hypertensive heart disease with heart failure; Z09 Encounter for follow-up examination after completed treatment for conditions other than malignant neoplasm
CPT/HCPCS: 36415; 80053; 85027

== ENCOUNTER 2021-02-28 12:05 | Outpatient (CLI) | payer OTHER ==
[2021-02-28 13:09] LABS: PLATELET COUNT 201 K/uL (152-353)
[2021-02-28 13:22] LABS: POTASSIUM 4.3 mmol/L (3.6-5.2)
== END 2021-02-28 20:43 | disposition home or self-care (01) ==
LOC: LAB 12:05
PROVIDERS: ATTEND Internal Medicine
DX: E11.65 Type 2 diabetes mellitus with hyperglycemia (principal); I10 Essential (primary) hypertension
CPT/HCPCS: 80053; 83036; 85027

== ENCOUNTER 2021-03-28 11:13 | Outpatient (CLI) | payer OTHER ==
[2021-03-28 11:28] LABS: PLATELET COUNT 227 K/uL (152-353)
[2021-03-28 11:42] LABS: POTASSIUM 4.7 mmol/L (3.6-5.2)
== END 2021-03-28 20:26 | disposition home or self-care (01) ==
LOC: LAB 11:13
PROVIDERS: ATTEND Nurse Practitioner Family
DX: E11.65 Type 2 diabetes mellitus with hyperglycemia (principal); I11.0 Hypertensive heart disease with heart failure; H54.8 Legal blindness, as defined in USA; Z86.711 Personal history of pulmonary embolism; I50.9 Heart failure, unspecified; Z09 Encounter for follow-up examination after completed treatment for conditions other than malignant neoplasm
CPT/HCPCS: 80053; 85027

== ENCOUNTER 2021-04-26 10:35 | Outpatient (CLI) | payer OTHER | END 2021-04-26 19:14 | disposition home or self-care (01) | LOC: RAD 10:35 | PROVIDERS: ATTEND Internal Medicine | DX: R05.9 Cough, unspecified (principal); R09.81 Nasal congestion; R06.2 Wheezing ==

== ENCOUNTER 2021-04-27 11:11 | Outpatient (CLI) | payer OTHER ==
[2021-04-27 11:53] LABS: PLATELET COUNT 194 K/uL (152-353)
[2021-04-27 12:09] LABS: POTASSIUM 4.4 mmol/L (3.6-5.2)
== END 2021-04-27 23:02 | disposition home or self-care (01) ==
LOC: LAB 11:11
PROVIDERS: ATTEND Nurse Practitioner Family
DX: E11.65 Type 2 diabetes mellitus with hyperglycemia (principal); I10 Essential (primary) hypertension; Z86.711 Personal history of pulmonary embolism; I50.9 Heart failure, unspecified
CPT/HCPCS: 80053; 85027

== ENCOUNTER 2021-05-11 10:46 | Outpatient (CLI) | payer OTHER | END 2021-05-11 20:31 | disposition home or self-care (01) | LOC: MAMMO 10:46 | PROVIDERS: ATTEND Specialist | DX: Z12.31 Encounter for screening mammogram for malignant neoplasm of breast (principal) ==

== ENCOUNTER 2021-05-14 07:14 | Emergency (ER) | payer OTHER ==
[~2021-05-14] VITALS: Ht 160 cm; Wt 117.9 kg
[2021-05-14 07:14] VITALS: TEMP 98.2
[2021-05-14 07:33] LABS: PLATELET COUNT 231 K/uL (152-353)
[2021-05-14 07:45] LABS: POTASSIUM 4.2 mmol/L (3.6-5.2)
[2021-05-14 10:50] VITALS: BP 143/65
== END 2021-05-14 10:55 | disposition home or self-care (01) ==
LOC: ED 07:14
PROVIDERS: Emergency Medicine Emergency Medical Services
DX: I50.9 Heart failure, unspecified (principal); N18.9 Chronic kidney disease, unspecified; I20.8 Other forms of angina pectoris; Z20.822 Contact with and (suspected) exposure to COVID-19
CPT/HCPCS: 80053; 84484; 85027; 85610; 85730; 87635; 93005; 96374; 96375; 99284; J1940; J2270; U0003

== ENCOUNTER 2021-05-15 10:36 | Outpatient (CLI) | payer OTHER ==
[2021-05-15 10:56] LABS: PLATELET COUNT 213 K/uL (152-353)
[2021-05-15 11:16] LABS: POTASSIUM 4.6 mmol/L (3.6-5.2)
== END 2021-05-15 19:00 | disposition home or self-care (01) ==
LOC: LAB 10:36
PROVIDERS: ATTEND Internal Medicine Nephrology
DX: E11.65 Type 2 diabetes mellitus with hyperglycemia (principal); D64.89 Other specified anemias; E78.00 Pure hypercholesterolemia, unspecified; N18.30 Chronic kidney disease, stage 3 unspecified; N28.89 Other specified disorders of kidney and ureter; E11.22 Type 2 diabetes mellitus with diabetic chronic kidney disease; H54.3 Unqualified visual loss, both eyes; I26.99 Other pulmonary embolism without acute cor pulmonale; Z87.39 Personal history of other diseases of the musculoskeletal system and connective tissue; Z91.11 Patient's noncompliance with dietary regimen; Z91.14 Patient's other noncompliance with medication regimen; Z95.9 Presence of cardiac and vascular implant and graft, unspecified; Z28.21 Immunization not carried out because of patient refusal; I12.9 Hypertensive chronic kidney disease with stage 1 through stage 4 chronic kidney disease, or unspecified chronic kidney disease; Z09 Encounter for follow-up examination after completed treatment for conditions other than malignant neoplasm
CPT/HCPCS: 80053; 81000; 82306; 82570; 83970; 84100; 84155; 85027

== ENCOUNTER 2021-06-28 09:54 | Emergency (ER) | payer OTHER ==
[~2021-06-28] VITALS: Ht 160 cm; Wt 117.9 kg
[2021-06-28 10:26] LABS: PLATELET COUNT 234 K/uL (152-353)
[2021-06-28 10:39] LABS: POTASSIUM 4.4 mmol/L (3.6-5.2)
[2021-06-28 11:28] VITALS: BP 159/87; TEMP 98.5
== END 2021-06-28 11:50 | disposition home or self-care (01) ==
LOC: ED 09:54
PROVIDERS: Hospitalist
DX: E11.65 Type 2 diabetes mellitus with hyperglycemia (principal); Z79.4 Long term (current) use of insulin; E86.0 Dehydration; N18.9 Chronic kidney disease, unspecified
CPT/HCPCS: 80053; 82550; 83880; 84484; 85027; 85610; 85730; 93005; 96360; 96375; 99284; J1815; J1885; J2405

== ENCOUNTER 2021-07-19 11:28 | Outpatient (CLI) | payer OTHER ==
[2021-07-19 11:41] LABS: PLATELET COUNT 198 K/uL (152-353)
[2021-07-19 14:01] LABS: POTASSIUM 4.9 mmol/L (3.6-5.2)
== END 2021-07-19 20:18 | disposition home or self-care (01) ==
LOC: LAB 11:28
PROVIDERS: ATTEND Internal Medicine
DX: E11.65 Type 2 diabetes mellitus with hyperglycemia (principal); I10 Essential (primary) hypertension; H54.8 Legal blindness, as defined in USA
CPT/HCPCS: 80053; 85027

== ENCOUNTER 2021-08-13 11:02 | Outpatient (CLI) | payer OTHER ==
[2021-08-13 11:10] LABS: PLATELET COUNT 258 K/uL (152-353)
[2021-08-13 11:23] LABS: POTASSIUM 4.3 mmol/L (3.6-5.2)
== END 2021-08-13 20:49 | disposition home or self-care (01) ==
LOC: LAB 11:02
PROVIDERS: ATTEND Internal Medicine
DX: E11.65 Type 2 diabetes mellitus with hyperglycemia (principal); H54.8 Legal blindness, as defined in USA; I50.9 Heart failure, unspecified; Z86.711 Personal history of pulmonary embolism; Z09 Encounter for follow-up examination after completed treatment for conditions other than malignant neoplasm; I11.0 Hypertensive heart disease with heart failure
CPT/HCPCS: 80053; 85027

== ENCOUNTER 2021-08-15 09:49 | Outpatient (CLI) | payer OTHER | END 2021-08-15 19:18 | disposition home or self-care (01) | LOC: MRI 09:49 | PROVIDERS: ATTEND Nurse Practitioner Adult Health | DX: R29.898 Other symptoms and signs involving the musculoskeletal system (principal) ==

== ENCOUNTER 2021-08-27 13:57 | Emergency (ER) | payer OTHER ==
[~2021-08-27] VITALS: Ht 160 cm; Wt 117.9 kg
[2021-08-27 14:07] VITALS: TEMP 97.4
[2021-08-27 14:45] LABS: PLATELET COUNT 240 K/uL (152-353)
[2021-08-27 14:53] LABS: POTASSIUM 4.2 mmol/L (3.6-5.2)
[2021-08-27] MEDS ORDERED: CARAFATE1 GM PO (17:08)
[2021-08-27] MEDS ORDERED: ONDA4TAB3 PO (17:12)
[2021-08-27 17:53] VITALS: BP 152/71
== END 2021-08-27 17:53 | disposition home or self-care (01) ==
LOC: ED 13:57
PROVIDERS: Emergency Medicine Emergency Medical Services
DX: R10.13 Epigastric pain (principal)
CPT/HCPCS: 36415; 80053; 81000; 81025; 82150; 83690; 84484; 85027; 93005; 96360; 96361; 96374; 96375; 99284; J0360; J2270; J2405; J3490

== ENCOUNTER 2021-09-12 11:22 | Outpatient (CLI) | payer OTHER ==
[~2021-09-12 11:22] MED LIST changes: +CARAFATE1 GM PO; +ONDA4TAB3 PO
[2021-09-12 11:49] LABS: PLATELET COUNT 253 K/uL (152-353)
[2021-09-12 11:59] LABS: POTASSIUM 4.4 mmol/L (3.6-5.2)
== END 2021-09-12 19:13 | disposition home or self-care (01) ==
LOC: LAB 11:22
PROVIDERS: ATTEND Internal Medicine
DX: E11.65 Type 2 diabetes mellitus with hyperglycemia (principal); I10 Essential (primary) hypertension; H54.8 Legal blindness, as defined in USA; Z86.73 Personal history of transient ischemic attack (TIA), and cerebral infarction without residual deficits; Z09 Encounter for follow-up examination after completed treatment for conditions other than malignant neoplasm
CPT/HCPCS: 80053; 83036; 85027

== ENCOUNTER 2021-10-03 11:54 | Outpatient (CLI) | payer OTHER ==
[2021-10-03 12:07] LABS: PLATELET COUNT 217 K/uL (152-353)
[2021-10-03 12:15] LABS: POTASSIUM 4.7 mmol/L (3.6-5.2)
== END 2021-10-03 19:12 | disposition home or self-care (01) ==
LOC: LAB 11:54
PROVIDERS: ATTEND Nurse Practitioner Family
DX: I11.0 Hypertensive heart disease with heart failure (principal); E11.65 Type 2 diabetes mellitus with hyperglycemia; Z79.01 Long term (current) use of anticoagulants; Z86.711 Personal history of pulmonary embolism; Z86.73 Personal history of transient ischemic attack (TIA), and cerebral infarction without residual deficits; I50.9 Heart failure, unspecified; Z09 Encounter for follow-up examination after completed treatment for conditions other than malignant neoplasm
CPT/HCPCS: 80053; 85027

== ENCOUNTER 2021-10-31 10:57 | Outpatient (CLI) | payer OTHER ==
[2021-10-31 11:10] LABS: PLATELET COUNT 265 K/uL (152-353)
[2021-10-31 11:35] LABS: POTASSIUM 4.4 mmol/L (3.6-5.2)
== END 2021-10-31 18:54 | disposition home or self-care (01) ==
LOC: LAB 10:57
PROVIDERS: ATTEND Internal Medicine
DX: E11.65 Type 2 diabetes mellitus with hyperglycemia (principal); I10 Essential (primary) hypertension; H54.8 Legal blindness, as defined in USA
CPT/HCPCS: 80053; 83036; 85027

== ENCOUNTER 2021-11-12 14:26 | Outpatient (CLI) | payer OTHER | END 2021-11-12 19:13 | disposition home or self-care (01) | LOC: RAD 14:26 | PROVIDERS: ATTEND Internal Medicine | DX: M54.17 Radiculopathy, lumbosacral region (principal); M25.551 Pain in right hip ==

== ENCOUNTER 2021-11-14 13:11 | Outpatient (CLI) | payer OTHER ==
[2021-11-14 13:26] LABS: PLATELET COUNT 269 K/uL (152-353)
[2021-11-14 13:48] LABS: POTASSIUM 4.4 mmol/L (3.6-5.2)
== END 2021-11-14 19:23 | disposition home or self-care (01) ==
LOC: LAB 13:11
PROVIDERS: ATTEND Internal Medicine Nephrology
DX: E11.65 Type 2 diabetes mellitus with hyperglycemia (principal); Z86.711 Personal history of pulmonary embolism; I50.9 Heart failure, unspecified; Z09 Encounter for follow-up examination after completed treatment for conditions other than malignant neoplasm; I11.0 Hypertensive heart disease with heart failure; D64.89 Other specified anemias; E78.00 Pure hypercholesterolemia, unspecified; N18.30 Chronic kidney disease, stage 3 unspecified; N28.89 Other specified disorders of kidney and ureter; E11.22 Type 2 diabetes mellitus with diabetic chronic kidney disease; H54.3 Unqualified visual loss, both eyes; I26.99 Other pulmonary embolism without acute cor pulmonale; Z87.39 Personal history of other diseases of the musculoskeletal system and connective tissue; Z91.11 Patient's noncompliance with dietary regimen; Z91.14 Patient's other noncompliance with medication regimen; Z95.9 Presence of cardiac and vascular implant and graft, unspecified; Z28.21 Immunization not carried out because of patient refusal
CPT/HCPCS: 80053; 81002; 82306; 82570; 83970; 84100; 84156; 85027

== ENCOUNTER 2021-11-19 07:36 | Emergency (ER) | payer OTHER ==
[~2021-11-19] VITALS: Ht 160 cm; Wt 109.3 kg
[2021-11-19 07:40] VITALS: TEMP 98.7
[2021-11-19 08:23] LABS: PLATELET COUNT 209 K/uL (152-353)
[2021-11-19 08:29] LABS: POTASSIUM 3.8 mmol/L (3.6-5.2)
[2021-11-19 08:45] LABS: PARTIAL THROMBOPLASTIN TIME 29.4 SECONDS (24.5-33.6)
[2021-11-19 13:30] VITALS: BP 161/87
== END 2021-11-19 13:30 | disposition home or self-care (01) ==
LOC: ED 07:36
PROVIDERS: Hospitalist
DX: R10.84 Generalized abdominal pain (principal); K59.09 Other constipation; U07.1 COVID-19
CPT/HCPCS: 80053; 81002; 81025; 82272; 83690; 85027; 85610; 85730; 87502; 87635; 87651; 93005; 96360; 96361; 99284; U0003

== ENCOUNTER 2021-12-12 12:30 | Outpatient (CLI) | payer OTHER ==
[2021-12-12 12:52] LABS: PLATELET COUNT 266 K/uL (152-353)
[2021-12-12 13:22] LABS: POTASSIUM 3.9 mmol/L (3.6-5.2)
== END 2021-12-12 19:37 | disposition home or self-care (01) ==
LOC: LAB 12:30
PROVIDERS: ATTEND Internal Medicine
DX: E11.65 Type 2 diabetes mellitus with hyperglycemia (principal); I10 Essential (primary) hypertension
CPT/HCPCS: 80053; 83036; 85027

== ENCOUNTER 2022-01-09 10:44 | Outpatient (CLI) | payer OTHER ==
[2022-01-09 10:55] LABS: PLATELET COUNT 198 K/uL (152-353)
[2022-01-09 11:10] LABS: POTASSIUM 4.7 mmol/L (3.6-5.2)
== END 2022-01-09 19:20 | disposition home or self-care (01) ==
LOC: LAB 10:44
PROVIDERS: ATTEND Nurse Practitioner Family
DX: E11.65 Type 2 diabetes mellitus with hyperglycemia (principal); Z86.711 Personal history of pulmonary embolism; I50.9 Heart failure, unspecified; I11.0 Hypertensive heart disease with heart failure; Z09 Encounter for follow-up examination after completed treatment for conditions other than malignant neoplasm
CPT/HCPCS: 80053; 85027

== ENCOUNTER 2022-02-05 08:10 | Outpatient (CLI) | payer OTHER ==
[~2022-02-05] VITALS: Ht 160 cm; Wt 108.0 kg
== END 2022-02-05 20:28 | disposition home or self-care (01) ==
LOC: NM 08:10
PROVIDERS: ATTEND Nurse Practitioner
DX: I25.10 Atherosclerotic heart disease of native coronary artery without angina pectoris (principal); I10 Essential (primary) hypertension
CPT/HCPCS: A9500; J2785

== ENCOUNTER 2022-03-06 10:16 | Outpatient (CLI) | payer OTHER ==
[2022-03-06 10:32] LABS: PLATELET COUNT 247 K/uL (152-353)
[2022-03-06 10:50] LABS: POTASSIUM 4.5 mmol/L (3.6-5.2)
== END 2022-03-06 23:59 | disposition home or self-care (01) ==
LOC: LAB 10:16
PROVIDERS: ATTEND Nurse Practitioner Family
DX: E11.65 Type 2 diabetes mellitus with hyperglycemia (principal); I10 Essential (primary) hypertension; H54.8 Legal blindness, as defined in USA; Z86.73 Personal history of transient ischemic attack (TIA), and cerebral infarction without residual deficits; Z79.01 Long term (current) use of anticoagulants; Z09 Encounter for follow-up examination after completed treatment for conditions other than malignant neoplasm
CPT/HCPCS: 80053; 83036; 85027

== ENCOUNTER 2022-05-29 11:09 | Outpatient (CLI) | payer OTHER ==
[2022-05-29 11:23] LABS: PLATELET COUNT 298 K/uL (152-353)
[2022-05-29 11:43] LABS: POTASSIUM 4.1 mmol/L (3.6-5.2)
== END 2022-05-29 20:06 | disposition home or self-care (01) ==
LOC: LAB 11:09
PROVIDERS: ATTEND Internal Medicine
DX: E11.65 Type 2 diabetes mellitus with hyperglycemia (principal); I10 Essential (primary) hypertension; H54.8 Legal blindness, as defined in USA; Z86.73 Personal history of transient ischemic attack (TIA), and cerebral infarction without residual deficits; Z79.01 Long term (current) use of anticoagulants; Z86.711 Personal history of pulmonary embolism; Z09 Encounter for follow-up examination after completed treatment for conditions other than malignant neoplasm
CPT/HCPCS: 80053; 83036; 85027

== ENCOUNTER 2022-09-03 04:28 | Observation (INO) | payer OTHER ==
[2022-09-03] VITALS (7 sets, daily range): BP systolic 114–176; BP diastolic 58–91; TEMP 98.2–98.7; Ht 160 cm; Wt 111.2 kg
[~2022-09-03] VITALS: Ht 160 cm; Wt 111.2 kg
[~2022-09-03 04:28] MED LIST changes: +AMOX500C85 PO; +DULOXETINE HYDR30 MG PO
[2022-09-03 05:17] LABS: PLATELET COUNT 246 K/uL (152-353)
[2022-09-03 05:19] LABS: POTASSIUM 3.9 mmol/L (3.6-5.2)
[2022-09-03] MEDS ORDERED: GRALISE600 MG PO (10:07)
[2022-09-03] MEDS ORDERED: ELIQUIS5 MG PO (10:09)
[2022-09-03] MEDS ORDERED: FURO40TA93 PO (10:11)
[2022-09-03] MEDS ORDERED: LINZESS145 MCG PO (10:12)
[2022-09-03] MEDS ORDERED: OZEMPIC2 MG/1.5 M SC (10:13)
[2022-09-03] MEDS ORDERED: SIMV20TA2 PO (10:14)
[2022-09-03] MEDS ORDERED: TRAMADOL HYDROC50 MG PO (10:15)
[2022-09-03] MEDS ORDERED: TOUJEO SOL300 UNIT/M SC (10:15)
[2022-09-03] MEDS ORDERED: AMBIEN5 MG PO (10:16)
[2022-09-04 00:27] VITALS: BP 127/55; TEMP 98.9
[2022-09-04 04:00] VITALS: BP 160/81; TEMP 99.1
[2022-09-04 05:35] LABS: PLATELET COUNT 216 K/uL (152-353)
[2022-09-04 08:00] VITALS: BP 191/86; TEMP 99.8
[2022-09-04 09:29] LABS: POTASSIUM 4.4 mmol/L (3.6-5.2)
[2022-09-04 12:00] VITALS: BP 173/81; TEMP 98.8
[2022-09-04] MEDS ORDERED: LEVAQUIN250 MG PO (15:27)
[2022-09-04] MEDS ORDERED: AZIT250T3 PO (15:29)
[2022-09-04 16:00] VITALS: BP 156/55; TEMP 98.8
== END 2022-09-04 16:03 | disposition home or self-care (01) ==
LOC: ED 04:28 → MED/SURG 06:30
PROVIDERS: Emergency Medicine; ADMIT Internal Medicine; ATTEND Internal Medicine
DX: J18.8 Other pneumonia, unspecified organism (principal); R06.02 Shortness of breath; K59.09 Other constipation; I69.898 Other sequelae of other cerebrovascular disease; H54.7 Unspecified visual loss; E11.40 Type 2 diabetes mellitus with diabetic neuropathy, unspecified; E11.65 Type 2 diabetes mellitus with hyperglycemia; Z79.4 Long term (current) use of insulin; N18.32 Chronic kidney disease, stage 3b; Z86.711 Personal history of pulmonary embolism; Z79.01 Long term (current) use of anticoagulants; D50.8 Other iron deficiency anemias; I12.9 Hypertensive chronic kidney disease with stage 1 through stage 4 chronic kidney disease, or unspecified chronic kidney disease
CPT/HCPCS: 36415; 80048; 80053; 81025; 82948; 83880; 85027; 85379; 87040; 93005; 94760; 96365; 96366; 96367; 96372; 96375; 99221; 99284; G0378; J0456; J0696; J1940

== ENCOUNTER 2022-12-12 13:14 | Outpatient (CLI) | payer OTHER ==
[~2022-12-12 13:14] MED LIST changes: +AMBIEN5 MG PO; +ELIQUIS5 MG PO; +FURO40TA93 PO; +LEVAQUIN250 MG PO; +LINZESS145 MCG PO; +OZEMPIC2 MG/1.5 M SC; +TOUJEO SOL300 UNIT/M SC; +TRAMADOL HYDROC50 MG PO
== END 2022-12-12 20:02 | disposition home or self-care (01) ==
LOC: RAD 13:14
PROVIDERS: ATTEND Internal Medicine
DX: R05.8 Other specified cough (principal)

== ENCOUNTER 2022-12-19 11:43 | Outpatient (CLI) | payer OTHER | END 2022-12-19 20:55 | disposition home or self-care (01) | LOC: US 11:43 | PROVIDERS: ATTEND Internal Medicine | DX: R60.0 Localized edema (principal); Z86.711 Personal history of pulmonary embolism; M79.604 Pain in right leg ==